=== PATIENT | female | born 1955 | race Caucasian/White ===

== ENCOUNTER → 2017-06-21 | Day surgery (SDC) | payer OTHER ==
[2017-06-20 07:52] VITALS: Ht 162.6 cm; Wt 109.1 kg
[~2017-06-21] VITALS: Ht 162.6 cm; Wt 109.1 kg
[~2017-06-21] MED LIST: CALC600T9 PO; CARV25TA2 PO; CHOL100010 PO; CYAN100T6 PO; FRS/40 PO; GLUC500C4 PO; HYDR-4380 PO; HYDR-4715 PO; IRON PO; LIDOCAINE HCL 2% 2 ML VIAL (20MG/ML) ONE; LISI40TA PO; MIDAZOLAM HCL 1 MG/ML 2ML VIAL ONE; MISCCAP80 PO; ONDANSETRON INJ 2 MG/ML 2 ML VIAL ONE; POTA20TA16 PO; PRLSR20 PO; PROPOFOL IV EMULSION 10 MG/ML 20 ML VIAL IV ONE; SIMV40TA2 PO; SODIUM CHLORIDE 0.9% 500ML 500 ML IV ONE
[2017-06-21 11:10] VITALS: TEMP 36.6
--- NOTE | 2017-06-21 11:42 | Endo History and Physical ---
History & Physical Date of Service: Jun 21, 2017. Chief Complaint: epigastric pain Referring Physician: Britany Desai PA-C History of Present Illness 62 yo CF who presents for EGD secondary to epigastric pain. Past Medical History Anxiety, High Cholesterol, Hypertension Past Surgical History Hx Cardiac Surgery: Yes (HEART CATH/NO STENTS) Hx Internal Defibrillator: No Hx Pacemaker: No Hx Abdominal Surgery: Yes (RT NEPHRECTOMY, C SECTION) Hx of Implantable Prosthesis: No Hx Post-Op Nausea and Vomiting: Yes (NAUSEAS FOR DAYS AFTER ANESTHESIA) Hx Cancer Surgery: No Hx Thoracic Surgery: No Hx Orthopedic: Yes (LUMBAR LAMINECTOMY X 2) Hx Urinary Tract Surgery: No Family History None Social History Smoking Status: Never Smoker Hx Substance Use: No Hx Alcohol Use: No Allergies Coded Allergies: Clonidine (Verified Allergy, Unknown, severe HTN, 06/20/17) Meperidine (Verified Allergy, Unknown, CAN'T BREATHE,THROAT SWELLS, ) Sulfa Drugs (Verified Allergy, Unknown, NERVOUS, 06/20/17) Morphine (Verified Adverse Reaction, Intermediate, "made mouth numb"-CAN' T BREATHE,THROAT SWELLS, 06/20/17) Current Medications Reported Home Medications Medications Dose Route/Sig Max Daily Dose Days Date Category Zocor (Simvastatin) 40 Mg Tab 40 Mg PO QPM 06/20/17 Reported Hydrocodone/Acetaminophen (Hydrocodone-Acetaminophen) 1 Tab Tab 0.5 Tab PO Q6H PRN 06/20/17 Reported Vitamin D (Cholecalciferol) 1,000 Unit Tab 1 Tab PO QAM 06/20/17 Reported Vitamin B12 100 Mcg (Cyanocobalamin) 100 Mcg Tab 100 Mcg PO QAM 06/20/17 Reported Prilosec (Omeprazole) 20 Mg Capcr 20 Mg PO BID 06/20/17 Reported Zestril (Lisinopril) 40 Mg Tab 40 Mg PO QAM 06/20/17 Reported Klor-Con (Potassium Chloride) 20 Meq Tabcr 20 Meq PO QAM 06/20/17 Reported [Iron] 90 Mg PO QAM 06/20/17 Reported Apresoline (Hydralazine Hcl) 10 Mg Tab 10 Mg PO BID 06/20/17 Reported Glucosamine (Glucosamine Sulfate) 500 Mg Cap 1 Cap PO BID 06/20/17 Reported Lasix (Furosemide) 40 Mg Tab 40 Mg PO QAM 06/20/17 Reported Coreg (Carvedilol) 25 Mg Tab 1 Tab PO BID 90 06/20/17 Reported Calcium + D (Calcium Carbonate-Vitamin D) 1 Tab Tab 1 Tab PO HS 06/20/17 Reported Probiotic (Probiotic Product) 1 Cap Cap 1 Cap PO QAM 06/20/17 Reported Vital Signs Weight (Kilograms): 109.09 Height (Feet): 5 Height (Inches): 4 Date Time Temp Pulse Resp B/P (MAP) Pulse Ox O2 Delivery O2 Flow Rate FiO2 06/21/17 11:10 36.6 77 20 162/90 (114) 96 Room Air Physical Exam General Appearance: WD/WN, no apparent distress Respiratory/Chest: Auscultation: breath sounds normal Cardiovascular: Heart Auscultation: RRR Abdomen: Bowel Sounds: normal Inspection & Palpation: soft, non-distended, no tenderness, guarding & rebound Assessment and Plan Assessment: 62 yo CF who presents for EGD secondary to epigastric pain. Plan: Proceed with colonoscopy.
--- NOTE | 2017-06-21 12:49 | Discharge Instructions ---
Endoscopy Patient Instructions Date / Procedure(s) Performed Jun 21, 2017. EGD Allergy Information Coded Allergies: Clonidine (Verified Allergy, Unknown, severe HTN, 06/20/17) Meperidine (Verified Allergy, Unknown, CAN'T BREATHE,THROAT SWELLS, ) Sulfa Drugs (Verified Allergy, Unknown, NERVOUS, 06/20/17) Morphine (Verified Adverse Reaction, Intermediate, "made mouth numb"-CAN' T BREATHE,THROAT SWELLS, 06/20/17) Discharge Date / Findings Jun 21, 2017. Gastritis s/p biopsies Gastric polyps s/p biopsies Medication Instructions OK to resume all medications today as prescribed Reported Home Medications Medications Dose Route/Sig Max Daily Dose Days Date Category Zocor (Simvastatin) 40 Mg Tab 40 Mg PO QPM 06/20/17 Reported Hydrocodone/Acetaminophen (Hydrocodone-Acetaminophen) 1 Tab Tab 0.5 Tab PO Q6H PRN 06/20/17 Reported Vitamin D (Cholecalciferol) 1,000 Unit Tab 1 Tab PO QAM 06/20/17 Reported Vitamin B12 100 Mcg (Cyanocobalamin) 100 Mcg Tab 100 Mcg PO QAM 06/20/17 Reported Prilosec (Omeprazole) 20 Mg Capcr 20 Mg PO BID 06/20/17 Reported Zestril (Lisinopril) 40 Mg Tab 40 Mg PO QAM 06/20/17 Reported Klor-Con (Potassium Chloride) 20 Meq Tabcr 20 Meq PO QAM 06/20/17 Reported [Iron] 90 Mg PO QAM 06/20/17 Reported Apresoline (Hydralazine Hcl) 10 Mg Tab 10 Mg PO BID 06/20/17 Reported Glucosamine (Glucosamine Sulfate) 500 Mg Cap 1 Cap PO BID 06/20/17 Reported Lasix (Furosemide) 40 Mg Tab 40 Mg PO QAM 06/20/17 Reported Coreg (Carvedilol) 25 Mg Tab 1 Tab PO BID 90 06/20/17 Reported Calcium + D (Calcium Carbonate-Vitamin D) 1 Tab Tab 1 Tab PO HS 06/20/17 Reported Probiotic (Probiotic Product) 1 Cap Cap 1 Cap PO QAM 06/20/17 Reported Provider Instructions Activity Restrictions - No exercising or heavy lifting for 24 hours. - Do not drink alcohol the day of the procedure. - Do not drive a car or operate machinery until the day after the procedure. - Do not make any important decisions or sign important papers in 24 hours after the procedure. Following Day: - Return to full activity which may include returning to work/school. Diet Start your diet with liquids and light foods (jello, soup, juice, toast). Then eat your usual diet if not nauseated. Treatment For Common After Affects For mild abdominal pain, bloating, or excessive gas: - Rest - Eat lightly - Lie on right side Follow-Up Information Follow-up with Britany Desai PA-C as scheduled Anesthesia Information What You Should Know You have had a procedure that required some medicine to reduce anxiety and discomfort. This treatment is called moderate sedation. After receiving the treatment, you may be sleepy, but you will be able to breathe on your own. The effects of the treatment may last for several hours. Follow these instructions along with Activity/Diet recommendations noted above: * Do NOT do anything where dizziness or clumsiness would be dangerous. * Rest quietly at home today, then you can be up and about tomorrow. * Have a responsible person stay with you the rest of today. * You may have had an I.V. today. If so, you may take the dressing off later today. Recommendations Call your doctor if: * Trouble breathing * Continuous vomiting for more than 24 hours * Temperature above 101 degrees * Severe abdominal pain or bloating * Pain not relieved by pain medicine ordered * There is increased drainage or redness from any incision * A large amount of rectal bleeding greater than 2-3 tablespoons. (If you had a polyp/s removed or have hemorrhoids, a small amount of blood - from the rectum is to be expected.) * You have any unanswered questions or concerns. IN THE EVENT OF A SERIOUS EMERGENCY, GO TO THE NEAREST EMERGENCY ROOM Your discharge instructions were prepared by provider Gopi Robb. Patient Instructions Signature Page Cheyanne Hussein Patient (or Guardian) Signature/Date: I have read and understand the instructions given to me by my caregivers. Caregiver/RN/Doctor Signature/Date: The above-named patient and/or guardian has received patient instructions on this date. + Original Patient Signature Page (only) stays with chart. Please make copy for patient.
--- NOTE | 2017-06-21 12:59 | GI REPORT ---
Procedure Date: 06/21/2017 12:19 PM Procedure: Upper GI endoscopy Indications: Epigastric abdominal pain Medicines: Monitored Anesthesia Care Complications: No immediate complications. Estimated Blood Loss: Estimated blood loss: none. Procedure: Pre-Anesthesia Assessment: - Prior to the procedure, a History and Physical was performed, and patient medications and allergies were reviewed. The patient's tolerance of previous anesthesia was also reviewed. The risks and benefits of the procedure and the sedation options and risks were discussed with the patient. All questions were answered, and informed consent was obtained. Prior Anticoagulants: The patient has taken no previous anticoagulant or antiplatelet agents. ASA Grade Assessment: III - A patient with severe systemic disease. After reviewing the risks and benefits, the patient was deemed in satisfactory condition to undergo the procedure. After obtaining informed consent, the endoscope was passed under direct vision. Throughout the procedure, the patient's blood pressure, pulse, and oxygen saturations were monitored continuously. The scope was introduced through the mouth, and advanced to the second part of duodenum. The upper GI endoscopy was accomplished without difficulty. The patient tolerated the procedure well. Findings: The esophagus was normal. Multiple 3 to 8 mm sessile polyps with no stigmata of recent bleeding were found in the gastric fundus. Biopsies were taken with a cold forceps for histology. Localized mild inflammation characterized by erythema was found in the gastric antrum. Biopsies were taken with a cold forceps for histology. The examined duodenum was normal. Impression: - Normal esophagus. - Multiple gastric polyps. Biopsied. - Gastritis. Biopsied. - Normal examined duodenum. Recommendation: - Resume previous diet. - Continue present medications. - Await pathology results. - Return to primary care physician as previously scheduled. Gopi Robb, DO 06/21/2017 12:59:30 PM This report has been signed electronically. Note Initiated On: 06/21/2017 12:19 PM I attest to the content of the Intraoperative Record and orders documented therein, exceptions below
[2017-06-21 13:17] VITALS: BP 165/88; PULSE 79; O2SAT 96
--- NOTE | 2017-06-21 13:23 | Anesthesiology Progress Note ---
Anesthesia Post Op Note Date & Time Jun 21, 2017 at 13:23 Vital Signs Pain Intensity: 1 Vital Signs Past 12 Hours Date Time Temp Pulse Resp B/P (MAP) Pulse Ox O2 Delivery O2 Flow Rate FiO2 06/21/17 13:17 79 20 165/88 (113) 96 Room Air 06/21/17 13:03 81 20 147/86 (106) 94 Room Air 06/21/17 12:48 73 20 135/77 (96) 96 Room Air 06/21/17 11:10 36.6 77 20 162/90 (114) 96 Room Air Notes Mental Status: alert / awake / arousable, participated in evaluation Pt Amnestic to Procedure: Yes Nausea / Vomiting: adequately controlled Pain: adequately controlled Airway Patency, RR, SpO2: stable & adequate BP & HR: stable & adequate Hydration State: stable & adequate Anesthetic Complications: no major complications apparent
== END | disposition home or self-care (01) ==
LOC: C.GI 10:44
PROVIDERS: ATTEND Internal Medicine
DX: R10.13 Epigastric pain (principal); K29.50 Unspecified chronic gastritis without bleeding; K31.7 Polyp of stomach and duodenum; K21.9 Gastro-esophageal reflux disease without esophagitis; Z88.5 Allergy status to narcotic agent; Z88.2 Allergy status to sulfonamides; I10 Essential (primary) hypertension; G47.33 Obstructive sleep apnea (adult) (pediatric); E78.00 Pure hypercholesterolemia, unspecified; Z90.5 Acquired absence of kidney; Z88.8 Allergy status to other drugs, medicaments and biological substances

== ENCOUNTER 2020-08-17 12:07 | Observation (INO) ==
[2020-08-17] MEDS ORDERED: NITROGLYCERIN SL 0.4 MG/TAB TAB SL STA (13:09)
[2020-08-17 13:10] LABS: Alanine Aminotransferase 27 U/L (12-78); Albumin Level 3.9 gm/dl (3.4-5.0); Aspartate Aminotransferase 16 U/L (15-37); BUN Creatinine Ratio 22.2 (10-20); Blood Urea Nitrogen 30 mg/dl (7-18); Calcium 9.4 mg/dl (8.5-10.1); Carbon Dioxide 26 mmol/L (21-32); Chloride 110 mmol/L (98-107); Creatinine Clr Calc Pharmacy 50.3 ml/min; Est GFR (African American) 47.4; Est GFR (Non-African American) 40.9; Glucose 105 mg/dl (70-99); Lipase 242 U/L (73-393); Potassium 3.5 mmol/L (3.5-5.1); Sodium 142 mmol/L (136-145)
[2020-08-17 13:14] LABS: Albumin Globulin Ratio 1.1 (0.9-2); Alkaline Phosphatase 85 U/L (45-117); Bilirubin,Total 0.5 mg/dl (0.2-1); Globulin 3.7 gm/dl (2.5-4.0); Total Protein 7.6 gm/dl (6.4-8.2); Troponin I < 0.015 ng/ml (0-0.045)
[2020-08-17 13:22] LABS: Basophils # (auto) 0.02 K/uL (0-0.2); Basophils % (auto) 0.3 %; Eosinophils # (auto) 0.09 K/uL (0-0.5); Eosinophils % (auto) 1.3 %; Hematocrit (blood only) 37.7 % (37-47); Hemoglobin 12.2 g/dL (12.0-16.0); Immature Granulocytes # (auto) 0.02 K/uL (0.00-0.02); Immature Granulocytes % (auto) 0.3 %; Lymphocytes # (auto) 1.17 K/uL (1.2-3.4); Lymphocytes % (auto) 17.1 %; Mean Corpuscular Hemoglobin 29.6 pg (25-34); Mean Corpuscular Hgb Conc 32.4 g/dL (32-36); Mean Corpuscular Volume 91.5 fL (80-100); Mean Platelet Volume 10.7 fL (7.4-10.4); Monocytes # (auto) 0.72 K/uL (0.11-0.59); Monocytes % (auto) 10.5 %; Neutrophils # (auto) 4.84 K/uL (1.4-6.5); Neutrophils % (auto) 70.5 %; Platelet Count 192 K/uL (130-400); RDW Coefficient of Variation 13.2 % (11.5-14.5); RDW Standard Deviation 44.4 fL (36.4-46.3); Red Blood Count 4.12 M/uL (4.2-5.4); White Blood Count 6.86 K/uL (4.8-10.8)
--- NOTE | 2020-08-17 13:33 | XRay Report ---
SINGLE VIEW CHEST CLINICAL HISTORY: Atypical chest pain. FINDINGS: An AP, portable, upright chest radiograph is compared to study dated 04/21/2018. The heart is enlarged noting atherosclerotic calcification of the thoracic aorta. The pulmonary vasculature is noncongested. Chronic interstitial thickening is similar to previous. There is mild bibasilar scarrin g/atelectasis. No airspace consolidation or large pleural effusion is identified. No pneumothorax is seen. The skeletal structures are osteopenic. The bony thorax is grossly intact. IMPRESSION: Cardiomegaly with no acute cardiopulmonary abnormality. ACT 112: Negative or not required by law. Electronically signed by: Theodore Carlton M.D. 08/17/2020 1:32 PM
[2020-08-17] MEDS: NITROGLYCERIN SL 0.4 MG/TAB TAB SL PRN ×2 (13:47→13:53)
--- NOTE | 2020-08-17 13:48 | Emergency Department Note ---
Impression & Plan Hypertensive urgency, Chest pain, Complete left bundle branch block (LBBB), Abnormal ECG ED Provider Note NAME: JEMAL MCCABE AGE: 65 SEX: F : 1955 ARRIVES VIA: Walk-In INFORMANT: Patient ED PROVIDER(S): David Petty DO CHIEF COMPLAINT: Chest pain and shortness of breath HPI: Patient is a 65-year-old female who presents to the ER for chest pain and shortness of breath. Symptoms have been getting worse over the past 1 to 2 weeks. Initially started following receiving Covid dose two days later. She does have a little cough. Denies any belly pain, nausea, vomiting, or diarrhea. She is having exertional chest pain and shortness of breath which has present for the past 1.5 weeks. Symptoms have gotten worse today and now present since getting up. Denies any dysuria, urgency, or frequency. No other exacerbating or remitting factors. She does follow with cardiology secondary to high blood pressure. Has a history of hyperlipidemia. She has taken all her medications for her blood pressure today. ROS: See above HPI for pertinent positives & negatives. A total of 10 systems reviewed and were otherwise negative. PAST MEDICAL HISTORY:See Below PAST SURGICAL HISTORY:See Below FAMILY HISTORY:See Below SOCIAL HISTORY:See Below HOME MEDICATIONS:See Below ALLERGIES:See Below VITALS:See Below PHYSICAL EXAMINATION: GENERAL: Sitting up in bed, alert, well appearing, well nourished, no distress, non-toxic EYE EXAM: normal conjunctiva. OROPHARYNX: no exudate, no erythema, lips, buccal mucosa, and tongue normal and mucous membranes are moist NECK: supple, no nuchal rigidity, no adenopathy, non-tender LUNGS: Clear to auscultation. Normal chest wall mechanics HEART: no murmurs, S1 normal and S2 normal ABDOMEN: abdomen soft, non-tender, normo-active bowel sounds, no masses, no rebound or guarding. BACK: Back is symmetrical on inspection and there is no deformity, no midline tenderness, no CVA tenderness. SKIN: no rashes and no bruising UPPER EXTREMITIES: upper extremities are grossly normal. LOWER EXTREMITIES: Pitting edema bilateral lower extremities NEURO EXAM: Normal sensorium, cranial nerves II-XII grossly intact, normal spe ech, no gross weakness of arms, no gross weakness of legs. MEDICAL DECISION MAKING: Patient is a 65-year-old female who presents the ER for chest pain present externally exertional over the past week. Now is present at rest associate with shortness of breath. Scribes as a tightness/heaviness over the middle of her chest. IV was established blood work was obtained. EKG was obtained. EKG showed a new left bundle branch block. Labs show no significant leukocytosis or anemia. BMP with slightly elevated chloride at 110. LFTs bilirubin are unremarkable. Troponin was negative with symptoms have been present for over 6 hours. Lipase was normal. Covid was negative. Patient was given sublingual nitro which resolved the chest pain. She is given aspirin. Blood pressure is peaked and she was placed on Nitropaste. Trended down to 170s and went back up. She is given IV hydralazine. She is given IV labetalol. Following this she was placed on a Cardene drip and will be titrated up. Discussed with Roderick and Dr. Frank from [facility] and his hospitalist team. Patient did remain chest pain free throughout this time. Patient was also discussed with Dr. Jose M Canada in regards to the chest pain, hypertension and new left bundle branch block. He recommended control of the blood pressure including IV hydralazine. Triage Nursing notes reviewed. Limited review of prior medical records performed Vital Signs: reviewed and remarkable for hypertensive Differential diagnosis: Differential diagnoses includes but is not limited to acute coronary syndrome, myocardial infarction, pericarditis, pulmonary embolus, aortic dissection, pneumonia, pneumothorax, musculoskeletal, shingles, esophageal. ER treatment provided: See below Diagnostics interpreted by me: ECG: Sinus rhythm rate 89 Left axis Left bundle branch block T wave inversion in the high lateral leads QTC 486 Left bundle branch is new from previous Cardiac Monitoring: An order was placed for continuous cardiac monitoring. The monitor shows a rate of 85 with sinus rhythm. Laboratory studies: As stated above and show below. Imaging studies: See below Consultation(s): Discussed with Dr. Jose M Canada from out any cardiology as stated above Discussed with not any hospitalist team for further evaluation Procedures: none Critical Care: I have personally spent 45 minutes of critical care time in the direct m anagement of this patient. This includes bedside care, interpretation of diagnostic studies, and testing, discussion with consultants, patient, and family members, and other required patient management activities. This 45 minutes is in excess of all separately billable procedures. Past Med/Surg History Medical History (Updated 08/17/20 @ 17:37 by David Petty DO) Back pain Chronic diastolic CHF (congestive heart failure) CKD (chronic kidney disease) Dyslipidemia HTN (hypertension) HTN (hypertension) Single kidney Sleep apnea Varicose vein of leg Surgical History H/O partial nephrectomy S/P lumbar discectomy Family History Other Blood clot in vein Social History Smoking Status: Never smoker Feels Safe at Home: Yes Allergies Allergies Allergy/AdvReac Type Severity Reaction Status Date / Time meperidine Allergy Severe CAN'T Verified 08/17/20 14:54 BREATHE,THROAT SWELLS morphine Allergy Severe Anaphylaxis Verified 08/17/20 14:54 Sulfa (Sulfonamide Allergy Intermediate NERVOUS Verified 08/17/20 14:54 Antibiotics) amlodipine Allergy Joint Pain Verified 08/17/20 16:54 clonidine AdvReac Severe severe HTN Verified 08/17/20 14:54 NSAIDS (Non-Steroidal AdvReac Severe ONLY HAS Verified 08/17/20 14:54 Anti-Inflamma ONE KIDNEY vaccines Allergy Anaphylaxis Uncoded 08/17/20 14:55 Home Meds Home Medications Medication Instructions Recorded Confirmed bupropion HCl 150 mg PO QAM 02/24/18 08/17/20 carvedilol 25 mg PO BID 02/24/18 08/17/20 glucosamine sulfate [Glucosamine] 500 mg PO BID 02/24/18 08/17/20 iron 18 mg PO DAILY 02/24/18 08/17/20 potassium chloride 20 meq PO DAILY 02/24/18 08/17/20 simvastatin 40 mg PO PM 02/24/18 08/17/20 calcium carbonate-vitamin D3 1 tab PO HS 08/17/20 08/17/20 [Calcium + D] lactobacillus combination no.4 3,000 mmu cells PO DAILY 08/17/20 08/17/20 [Probiotic] multivitamin [Multiple Vitamin] 1 tab PO DAILY 08/17/20 08/17/20 pantoprazole 20 mg PO BID 08/17/20 08/17/20 Previous Rx's Medication Instructions Recorded hydralazine 25 mg tablet 25 mg PO TID #90 tab 04/12/19 furosemide 40 mg tablet 40 mg PO DAILY #90 tab 07/10/20 lisinopril 40 mg tablet 40 mg PO DAILY #90 tab 07/10/20 Results & Data (ED) Vital Signs Vital Signs - 24 hr 08/17/20 12:18 08/17/20 12:29 08/17/20 12:59 Temperature 36.4 C L Temperature Source Skin Pulse Rate 90 85 Pulse Rate from SpO2 Sensor Pulse Rhythm Regular Pulse Strength Normal Respiratory Rate 20 15 Respiratory Effort / Characteristics Non-Labored Spontaneous Respiratory Depth Normal Respiratory Pattern Regular Blood Pressure 171/76 H 215/98 H Blood Pressure Mean 107 137 Pulse Oximetry 95 95 96 Oxygen Delivery Method Room Air Sepsis Recent Fever Within 48 Hours No Sepsis New/Unexplained Change in Mental Status N/A Sepsis Action Taken by Nursing No Action Required 08/17/20 13:00 08/17/20 13:44 08/17/20 13:53 Temperature Temperature Source Pulse Rate 85 86 87 Pulse Rate from SpO2 Sensor 85 86 88 Pulse Rhythm Pulse Strength Respiratory Rate 16 15 17 Respiratory Effort / Characteristics Respiratory Depth Respiratory Pattern Blood Pressure 208/113 H 191/108 H 222/137 H Blood Pressure Mean 144 135 165 Pulse Oximetry 96 95 94 Oxygen Delivery Method Sepsis Recent Fever Within 48 Hours Sepsis New/Unexplained Change in Mental Status Sepsis Action Taken by Nursing 08/17/20 14:00 08/17/20 14:31 08/17/20 14:32 Temperature Temperature Source Pulse Rate 85 82 73 Pulse Rate from SpO2 Sensor 83 74 Pulse Rhythm Pulse Strength Respiratory Rate 16 16 15 Respiratory Effort / Characteristics Respiratory Depth Respiratory Pattern Blood Pressure 172/109 H 208/101 H Blood Pressure Mean 130 136 Pulse Oximetry 94 96 95 Oxygen Delivery Method Sepsis Recent Fever Within 48 Hours Sepsis New/Unexplained Change in Mental Status Sepsis Action Taken by Nursing 08/17/20 15:00 08/17/20 15:30 08/17/20 15:31 Temperature Temperature Source Pulse Rate 78 79 78 Pulse Rate from SpO2 Sensor 78 79 78 Pulse Rhythm Pulse Strength Respiratory Rate 18 12 13 Respiratory Effort / Characteristics Respiratory Depth Respiratory Pattern Blood Pressure 201/105 H 173/99 H Blood Pressure Mean 137 123 Pulse Oximetry 97 98 98 Oxygen Delivery Method Sepsis Recent Fever Within 48 Hours Sepsis New/Unexplained Change in Mental Status Sepsis Action Taken by Nursing 08/17/20 16:06 08/17/20 16:07 08/17/20 16:30 Temperature Temperature Source Pulse Rate 84 81 90 Pulse Rate from SpO2 Sensor 82 80 90 Pulse Rhythm Pulse Strength Respiratory Rate 20 15 12 Respiratory Effort / Characteristics Respiratory Depth Respiratory Pattern Blood Pressure 208/106 H Blood Pressure Mean 140 Pulse Oximetry 96 97 98 Oxygen Delivery Method Sepsis Recent Fever Within 48 Hours Sepsis New/Unexplained Change in Mental Status Sepsis Action Taken by Nursing 08/17/20 16:31 Temperature Temperature Source Pulse Rate 89 Pulse Rate from SpO2 Sensor 89 Pulse Rhythm Pulse Strength Respiratory Rate 14 Respiratory Effort / Characteristics Respiratory Depth Respiratory Pattern Blood Pressure 224/95 H Blood Pressure Mean 138 Pulse Oximetry 97 Oxygen Delivery Method Sepsis Recent Fever Within 48 Hours Sepsis New/Unexplained Change in Mental Status Sepsis Action Taken by Nursing Laboratory Data Result diagrams: 08/17/20 12:36 08/17/20 12:36 Lab Results 08/17/20 08/17/20 08/17/20 Range/Units 12:36 12:36 13:59 WBC 6.86 (4.8-10.8) K/uL RBC 4.12 L (4.2-5.4) M/uL Hgb 12.2 (12.0-16.0) g/dL Hct 37.7 (37-47) % MCV 91.5 (80-100) fL MCH 29.6 (25-34) pg MCHC 32.4 (32-36) g/dL RDW Std Deviation 44.4 (36.4-46.3) fL RDW Coeff of Gaby 13.2 (11.5-14.5) % Plt Count 192 (130-400) K/uL MPV 10.7 H (7.4-10.4) fL Immature Gran % (Auto) 0.3 % Neut % (Auto) 70.5 % Lymph % (Auto) 17.1 % Weak[place] % (Auto) 10.5 % Eos % (Auto) 1.3 % Baso % (Auto) 0.3 % Neut # (Auto) 4.84 (1.4-6.5) K/uL Lymph # (Auto) 1.17 L (1.2-3.4) K/uL Weakley # (Auto) 0.72 H (0.11-0.59) K/uL Eos # (Auto) 0.09 (0-0.5) K/uL Baso # (Auto) 0.02 (0-0.2) K/uL Immature Gran # (Auto) 0.02 (0.00-0.02) K/uL Sodium 142 (136-145) mmol/L Potassium 3.5 (3.5-5.1) mmol/L Chloride 110 H (98-107) mmol/L Carbon Dioxide 26 (21-32) mmol/L Anion Gap 7.0 (3-11) BUN 30 H (7-18) mg/dl Creatinine 1.34 H (0.6-1.2) mg/dl Est Cr Clr Drug Dosing 50.3 ml/min Est GFR ( Amer) 47.4 Est GFR (Non-Af Amer) 40.9 BUN/Creatinine Ratio 22.2 H (10-20) Glucose 105 H (70-99) mg/dl Calcium 9.4 (8.5-10.1) mg/dl Total Bilirubin 0.5 (0.2-1) mg/dl AST 16 (15-37) U/L ALT 27 (12-78) U/L Alkaline Phosphatase 85 (45-117) U/L Troponin I < 0.015 (0-0.045) ng/ml Total Protein 7.6 (6.4-8.2) gm/dl Albumin 3.9 (3.4-5.0) gm/dl Globulin 3.7 (2.5-4.0) gm/dl Albumin/Globulin Ratio 1.1 (0.9-2) Lipase 242 (73-393) U/L COVID-19 Eval Order CovFluRsv at [facility] SARS-CoV-2 (PCR) (Negative) Influenza Type A (PCR) (Neg) Influenza Type B (PCR) (Neg) RSV (RT-PCR) (Neg) 08/17/20 Range/Units 13:59 WBC (4.8-10.8) K/uL RBC (4.2-5.4) M/uL Hgb (12.0-16.0) g/dL Hct (37-47) % MCV (80-100) fL MCH (25-34) pg MCHC (32-36) g/dL RDW Std Deviation (36.4-46.3) fL RDW Coeff of Gaby (11.5-14.5) % Plt Count (130-400) K/uL MPV (7.4-10.4) fL Immature Gran % (Auto) % Neut % (Auto) % Lymph % (Auto) % Weakley % (Auto) % Eos % (Auto) % Baso % (Auto) % Neut # (Auto) (1.4-6.5) K/uL Lymph # (Auto) (1.2-3.4) K/uL Weakley # (Auto) (0.11-0.59) K/uL Eos # (Auto) (0-0.5) K/uL Baso # (Auto) (0-0.2) K/uL Immature Gran # (Auto) (0.00-0.02) K/uL Sodium (136-145) mmol/L Potassium (3.5-5.1) mmol/L Chloride (98-107) mmol/L Carbon Dioxide (21-32) mmol/L Anion Gap (3-11) BUN (7-18) mg/dl Creatinine (0.6-1.2) mg/dl Est Cr Clr Drug Dosing ml/min Est GFR ( Amer) Est GFR (Non-Af Amer) BUN/Creatinine Ratio (10-20) Glucose (70-99) mg/dl Calcium (8.5-10.1) mg/dl Total Bilirubin (0.2-1) mg/dl AST (15-37) U/L ALT (12-78) U/L Alkaline Phosphatase (45-117) U/L Troponin I (0-0.045) ng/ml Total Protein (6.4-8.2) gm/dl Albumin (3.4-5.0) gm/dl Globulin (2.5-4.0) gm/dl Albumin/Globulin Ratio (0.9-2) Lipase (73-393) U/L COVID-19 Eval Order SARS-CoV-2 (PCR) NEGATIVE (Negative) Influenza Type A (PCR) Negative (Neg) Influenza Type B (PCR) Negative (Neg) RSV (RT-PCR) Negative (Neg) Administered Medications Nicardipine HCl 25 mg/ Sodium (Chloride) 250 mls @ 50 mls/hr IV .Q5H [facility]; Protocol Stop: 09/16/20 16:44 Last Admin: 08/17/20 17:11 Dose: 5 mg/hr, 50 mls/hr Documented by: [id number] Cosigned by: [id number] Nitroglycerin (Nitroglycerin Sl 0.4 Mg/Tab Tab) 0.4 mg SL PRN PRN PRN Reason: Chest Pain Stop: 09/16/20 13:38 Last Admin: 08/17/20 13:53 Dose: 0.4 mg Documented by: [id number] Admin: 08/17/20 13:47 Dose: 0.4 mg Documented by: [id number] Discontinued Medications Hydralazine HCl (Hydralazine Hcl 20 Mg/Ml Vial) 10 mg IV NOW STA Stop: 08/17/20 15:32 Last Admin: 08/17/20 15:55 Dose: 10 mg Documented by: [id number] Labetalol HCl (Labetalol Hcl Iv 5 Mg/Ml 20ml) 10 mg IV NOW STA Stop: 08/17/20 16:44 Last Admin: 08/17/20 16:51 Dose: 10 mg Documented by: [id number] Cosigned by: [id number] Miscellaneous (Stat Iv Infusion Titration Per Protocol) 1 ea N/A NOW STA Stop: 08/17/20 16:44 Last Admin: 08/17/20 17:11 Dose: 1 ea Documented by: [id number] Nitroglycerin (Nitroglycerin Sl 0.4 Mg/Tab Tab) 0.4 mg SL NOW STA Stop: 08/17/20 13:10 Last Admin: 08/17/20 13:29 Dose: 0.4 mg Documented by: [id number] Nitroglycerin (Nitroglycerin 2% Ointment 30gm Tube) 2 inch EXT Q6H STA Stop: 08/17/20 14:29 Last Admin: 08/17/20 14:58 Dose: 2 inch Documented by: [id number] Imaging Data Radiologist's Impression: Chest X-Ray 08/17/20 12:57 SINGLE VIEW CHEST CLINICAL HISTORY: Atypical chest pain. FINDINGS: An AP, portable, upright chest radiograph is compared to study dated 04/21/2018. The heart is enlarged noting atherosclerotic calcification of the thoracic aorta. The pulmonary vasculature is noncongested. Chronic interstitial thickening is similar to previous. There is mild bibasilar scarring/atelectasis. No airspace consolidation or large pleural effusion is identified. No pneumothorax is seen. The skeletal structures are osteopenic. The bony thorax is grossly intact. IMPRESSION: Cardiomegaly with no acute cardiopulmonary abnormality. ACT 112: Negative or not required by law. Electronically signed by: Theodore Carlton M.D. 08/17/2020 1:32 PM Discharge Plan Visit Data Chief Complaint: Cardiac Assessment Stated Complaint: TIGHTNESS IN CHEST,HARD TO BREATHE,TIRED ED Provider: David Petty Discharge Problem: Hypertensive urgency, Chest pain, Complete left bundle branch block (LBBB), Abnormal ECG Forms Stand Alone Forms: [facility] Prescriptions Prescriptions: No Action furosemide 40 mg tablet 40 mg PO DAILY Qty: 90 RF: 3 lisinopril 40 mg tablet 40 mg PO DAILY Qty: 90 RF: 3 hydralazine 25 mg tablet 25 mg PO TID Qty: 90 RF: 5 carvedilol 25 mg Tablet 25 mg PO BID RF: 0 glucosamine sulfate [Glucosamine] 500 mg Tablet 500 mg PO BID RF: 0 potassium chloride 20 mEq Tablet Extended Release 20 meq PO DAILY RF: 0 bupropion HCl 150 mg Tablet Extended Release 24 Hr 150 mg PO QAM RF: 0 simvastatin 40 mg Tablet 40 mg PO PM RF: 0 iron 18 mg Tablet 18 mg PO DAILY RF: 0 calcium carbonate-vitamin D3 [Calcium + D] 600 mg(1,500mg) -200 unit Tablet 1 tab PO HS RF: 0 pantoprazole 20 mg tablet,delayed release (DR/EC) 20 mg PO BID RF: 0 multivitamin [Multiple Vitamin] Tablet 1 tab PO DAILY RF: 0 Probiotic 3 billion cell Capsule 3,000 mmu cells PO DAILY RF: 0 Discharge Problem: Chest pain Qualifiers: Chest pain type: unspecified Qualified Code(s): R07.9 - Chest pain, unspecified
[2020-08-17] MEDS ORDERED: NITROGLYCERIN 2% OINTMENT 30GM TUBE EXT STA (14:28)
[2020-08-17 14:49] LABS: Influenza A virus by PCR Negative (Neg); Influenza B virus by PCR Negative (Neg); RSV by PCR Negative (Neg); SARS CoV2 RNA(COVID-19) InHosp NEGATIVE (Negative)
[2020-08-17] MEDS ORDERED: hydrALAZINE HCL 20 MG/ML VIAL IV STA (15:31)
[2020-08-17] MEDS ORDERED: STAT IV Infusion **Titration per Protocol STA ×2 (16:43→18:22)
[2020-08-17] MEDS ORDERED: LABETALOL HCL IV 5 MG/ML 20ML IV STA (16:43)
[2020-08-17] MEDS ORDERED: niCARdipine 25 MG in SODIUM CHLORIDE 0.9% 240 ML IV SCH (16:45)
--- NOTE | 2020-08-17 17:40 | Electrocardiogram Report ---
Test Reason : Blood Pressure : / mmHG Vent. Rate : 089 BPM Atrial Rate : 089 BPM P-R Int : 188 ms QRS Dur : 138 ms QT Int : 400 ms P-R-T Axes : 073 -57 093 degrees QTc Int : 486 ms Normal sinus rhythm Left axis deviation Left bundle branch block Abnormal ECG When compared with ECG of 24-FEB-2018 06:43, Left bundle branch block is now Present Confirmed by Alex Canada ([id number]) on 08/17/2020 5:39:43 PM Referred By: REFERRED SELF Confirmed By:Satinder Canada
[2020-08-17] MEDS ORDERED: ALUMINUM/MAGNESIUM SUSP 18 ML, LIDOCAINE HCL VISCOUS 2% 6 ML, BARCODE IDENTIFIER 1 EA PO ONE (17:55)
[2020-08-17] MEDS ORDERED: FUROSEMIDE 40 MG/4 ML VIAL IV STA (17:59)
--- NOTE | 2020-08-17 18:30 | History & Physical Report ---
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 to 1.34, her last creatinine was 1.26 in October of 2019 - Not sure this is an acute rise as her BP appears to be chronically elevated - Patient does have evidence of worsening fluid in her lower extremities- will diurese with 40mg Lasix, resume oral dosing in morning - Control of BP with Cardene drip achieved and dose decreased to 2.5 mg/hour continuous - give oral medications and wean drip off ---> if able to wean off restart if >200 or MAP >115-120 - Renal artery duplex - JOSHUA on hold for tonight, pending BMP in morning---> restart if [employer] stable (2) Complete left bundle branch block (LBBB): New when compared to 2018 ECG - Troponin I negative x1, recheck now - No acute interventions at this time (3) CKD (chronic kidney disease), stage III: As above, not sure this is acute in the setting of long standing HTN - Urine pending for urine protien and blood - Continue to control BP---> goal would be <140 during this admission - JOSHUA on hold for tonight, pending BMP in morning---> restart if [employer]US[employer] stable (4) 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 (5) Chronic diastolic CHF (congestive heart failure): Patient does note some dietary indiscretion as well as not taking her extra Lasix dose - Currently appears volume overloaded from a RV perspective - CXR not overly impressive for LV involvment - Diastolic dysfunction noted on ECHO previously- will repeat in house (6) Dyspnea: Get better control of BP and volume status - Not hypoxic - Mild tachycardic in the 90's - Diurese and BP control upfront - Bilateral venous ultrasound assess for DVT - Patient is not conversationally dyspneic, and denies orthopnea - no wheeze or crackles on exam (7) Chest pain: Troponin negative x2 - Treat GERD symptoms - ECHO - Improved upon going to the floor (8) Sleep apnea: Home CPAP (9) Dyslipidemia: lipids in morning - Continue Simvastatin 40 mg QD (10) GERD (gastroesophageal reflux disease): GI Cocktail x 1 now - Continue with pantoprazole 20mg PO BID History of Present Illness Chief Complaint: chest pain Primary Care Provider: Deanna Barney, [employer] 65 YOF with past medical history significant for one kidney (since , it had to be removed), diastolic dysfunction (55-60% 2019), HTN, CKD III, GERD, obesity, HLD. She is not a very good historian or easy to interview regarding symptoms past or present. Patient came to the ER for increasing dyspnea and chest tightness for 2 weeks. She attributed these symptoms to the COVID vaccine that she received around that time. She has had trouble catching her breath when walking, she feels like the chest discomfort comes and goes and is more like a tightness. She was given a sublingual ntg in the EMD as well as nitro- paste and she "thinks it went away but still feels some burning, like i have to burp. When asked if this was the same discomfort she felt when she had her EGD, she said "I think so" and her says yes, this is how she felt. She says that she has noticed her "legs getting more swollen and was going to take another diuretic pill, but just didn't do it", She does confess to dietary indiscretion as well. During her work-up, it was noted that her BP continued to increase and be refractory to IV agents (hydralazine 10mg IV x1, and Labetalol 10mg IVx 1) and she has since been placed on a Cardene drip, with noted 260/115. The patient will get admitted to PCU for continuation of monitoring, tracking of her BP, trending ECG, and monitoring of her Kidney function. The patient will be given 40mg IV Lasix now for edema that extends up to mid-thigh, and her hydralazine/carvedilol, with goal of removal of Cardene drip. She was noted to have a new LBBB and a negative Troponin I, the [facility] physician Dr. Petty spoke with Dr. Canada from cardiology regarding her ECG and as Troponin I is negative, continue to control BP. Allergies Allergy/AdvReac Type Severity Reaction Status Date / Time meperidine Allergy Severe CAN'T Verified 08/17/20 14:54 BREATHE,THROAT SWELLS morphine Allergy Severe Anaphylaxis Verified 08/17/20 14:54 Sulfa (Sulfonamide Allergy Intermediate NERVOUS Verified 08/17/20 14:54 Antibiotics) amlodipine Allergy Joint Pain Verified 08/17/20 16:54 clonidine AdvReac Severe severe HTN Verified 08/17/20 14:54 NSAIDS (Non-Steroidal AdvReac Severe ONLY HAS Verified 08/17/20 14:54 Anti-Inflamma ONE KIDNEY vaccines Allergy Anaphylaxis Uncoded 08/17/20 14:55 Home Medications Medication Instructions Recorded Confirmed Type bupropion HCl 150 mg PO QAM 02/24/18 08/17/20 History carvedilol 25 mg PO BID 02/24/18 08/17/20 History glucosamine sulfate [Glucosamine] 500 mg PO BID 02/24/18 08/17/20 History iron 18 mg PO DAILY 02/24/18 08/17/20 History potassium chloride 20 meq PO DAILY 02/24/18 08/17/20 History simvastatin 40 mg PO PM 02/24/18 08/17/20 History hydralazine 25 mg tablet 25 mg PO TID #90 tab 04/12/19 08/17/20 Rx furosemide 40 mg tablet 40 mg PO DAILY #90 tab 07/10/20 08/17/20 Rx lisinopril 40 mg tablet 40 mg PO DAILY #90 tab 07/10/20 08/17/20 Rx Probiotic 3,000 mmu cells PO DAILY 08/17/20 08/17/20 History calcium carbonate-vitamin D3 1 tab PO HS 08/17/20 08/17/20 History multivitamin 1 tab PO DAILY 08/17/20 08/17/20 History pantoprazole 20 mg PO BID 08/17/20 08/17/20 History Past Med/Surg History Medical History (Updated 08/18/20 @ 12:21 by Oscar Canada MD) Back pain Chronic diastolic CHF (congestive heart failure) CKD (chronic kidney disease) Dyslipidemia HTN (hypertension) HTN (hypertension) Single kidney Sleep apnea Varicose vein of leg Surgical History H/O partial nephrectomy S/P lumbar discectomy Family History Other Blood clot in vein Social History Smoking Status: Never smoker Second Hand Exposure: No; Hx Alcohol Use: No Hx Substance Use: No Preferred Language: Wolof Communication Ability: Effective Media Specialist Required: No Beliefs That Will Affect Care: None Current Living Situation: Family Feels Safe at Home: Yes Assistive Devices: None Review of Systems Review of Systems: REVIEW OF SYSTEMS: Constitutional: No fever, sweats or chills Eyes: No diplopia, no worsening or blurred vision ENT: normal hearing, no trouble swallowing Respiratory: (+) dyspnea at rest or on exertion, No cough, sputum, Cardiovascular: (+) tightness, No chest pain, or palpitations Abdomen: No pain, nausea, vomiting, diarrhea or constipation Musculoskeletal: (+) swelling, normally to mid calf, No joint pain, calf pain, Neurologic: No weakness, numbness/tingling, or balance problems Psychiatric: No anxiety or depression Skin: No rash or itch Physical Exam Physical Exam: PHYSICAL EXAM: General: awake, alert, no apparent distress, non-anxious appearing Head: Normocephalic, atraumatic ENT: PERRL, EOMI, no pharyngeal exudate, mucous membranes moist Neuro: AAO x 3, speech clear and appropriate, strength intact bilaterally 5/5, sensation intact and equal all extremities and dermatomes, no pronator drift Chest: equal rise and fall of the chest, no accessory muscle use, no heaves or thrills, Clear to auscultation, on room air, Cardiac: Regular rate and rhythm, telemetry reviewed, skin warm dry, cap refill <3 seconds, peripheral pulses +2 no JVD, no murmur, +3 edema to right below knee +2 to lower third of thigh bilaterally, skin is warm and dry. GI: Burning retrosternal pain with feeling of needing to belch, NABS x 4 quadrants, soft, nontender to palpation, no rebound, guarding or tenderness : Spontaneously voiding, no pain, no CVA tenderness, Extremities: Normal inspection, no peripheral edema or erythema, calfs nontender to palpation Psych: Normal mood and affect Skin: no rash or erythema Results & Data Results & Data ([facility]) Vital Signs (Past 12 Hours) Vital Signs Temp Pulse Resp BP Pulse Ox 08/17/20 18:06 96 H 13 156/72 H 94 08/17/20 18:01 95 H 21 92 08/17/20 18:00 93 H 12 93 08/17/20 17:46 93 H 13 215/89 H 92 08/17/20 17:41 92 H 13 226/107 H 93 08/17/20 17:32 95 H 17 93 08/17/20 17:31 93 H 15 260/115 H 94 08/17/20 17:30 93 H 15 91 08/17/20 17:21 92 H 14 269/116 H 96 08/17/20 17:01 87 16 244/103 H 96 08/17/20 17:00 86 13 96 08/17/20 16:32 88 13 96 08/17/20 16:31 89 14 224/95 H 97 08/17/20 16:30 90 12 98 08/17/20 16:07 81 15 208/106 H 97 08/17/20 16:06 84 20 96 08/17/20 15:31 78 13 98 08/17/20 15:30 79 12 173/99 H 98 08/17/20 15:00 78 18 201/105 H 97 08/17/20 14:32 73 15 95 08/17/20 14:31 82 16 208/101 H 96 08/17/20 14:00 85 16 172/109 H 94 08/17/20 13:53 87 17 222/137 H 94 08/17/20 13:44 86 15 191/108 H 95 08/17/20 13:00 85 16 208/113 H 96 08/17/20 12:59 96 08/17/20 12:29 85 15 215/98 H 95 08/17/20 12:18 36.4 C L 90 20 171/76 H 95 Laboratory Results Abnormal lab results 08/17/20 08/17/20 Range/Units 12:36 12:36 RBC 4.12 L (4.2-5.4) M/uL MPV 10.7 H (7.4-10.4) fL Lymph # (Auto) 1.17 L (1.2-3.4) K/uL [place] # (Auto) 0.72 H (0.11-0.59) K/uL Chloride 110 H (98-107) mmol/L BUN 30 H (7-18) mg/dl Creatinine 1.34 H (0.6-1.2) mg/dl BUN/Creatinine Ratio 22.2 H (10-20) Glucose 105 H (70-99) mg/dl Diagnostic Findings SINGLE VIEW CHEST CLINICAL HISTORY: Atypical chest pain. FINDINGS: An AP, portable, upright chest radiograph is compared to study dated 04/21/2018. The heart is enlarged noting atherosclerotic calcification of the thoracic aorta. The pulmonary vasculature is noncongested. Chronic interstitial thickening is similar to previous. There is mild bibasilar scarring/atelectasis. No airspace consolidation or large pleural effusion is identified. No pneumothorax is seen. The skeletal structures are osteopenic. The bony thorax is grossly intact. IMPRESSION: Cardiomegaly with no acute cardiopulmonary abnormality. Medications Administered Nitroglycerin (Nitroglycerin Sl 0.4 Mg/Tab Tab) 0.4 mg SL PRN PRN PRN Reason: Chest Pain Stop: 09/16/20 13:38 Last Admin: 08/17/20 13:53 Dose: 0.4 mg Documented by: [id number] Admin: 08/17/20 13:47 Dose: 0.4 mg Documented by: [id number] Discontinued Medications Hydralazine HCl (Hydralazine Hcl 20 Mg/Ml Vial) 10 mg IV NOW STA Stop: 08/17/20 15:32 Last Admin: 08/17/20 15:55 Dose: 10 mg Documented by: [id number] Nicardipine HCl 25 mg/ Sodium (Chloride) 250 mls @ 50 mls/hr IV .Q5H LYNN; Protocol Stop: 09/16/20 16:44 Last Titration: 08/17/20 18:05 Dose: 2.5 mg/hr, 25 mls/hr Documented by: [id number] Titration: 08/17/20 17:39 Dose: 7.5 mg/hr, 75 mls/hr Documented by: [id number] Admin: 08/17/20 17:11 Dose: 5 mg/hr, 50 mls/hr Documented by: [id number] Cosigned by: [id number] Labetalol HCl (Labetalol Hcl Iv 5 Mg/Ml 20ml) 10 mg IV NOW STA Stop: 08/17/20 16:44 Last Admin: 08/17/20 16:51 Dose: 10 mg Documented by: [id number] Cosigned by: [id number] Miscellaneous (Stat Iv Infusion Titration Per Protocol) 1 ea N/A NOW STA Stop: 08/17/20 16:44 Last Admin: 08/17/20 17:11 Dose: 1 ea Documented by: [id number] Nitroglycerin (Nitroglycerin Sl 0.4 Mg/Tab Tab) 0.4 mg SL NOW STA Stop: 08/17/20 13:10 Last Admin: 08/17/20 13:29 Dose: 0.4 mg Documented by: [id number] Nitroglycerin (Nitroglycerin 2% Ointment 30gm Tube) 2 inch EXT Q6H STA Stop: 08/17/20 14:29 Last Admin: 08/17/20 14:58 Dose: 2 inch Documented by: [id number] Home Medications bupropion HCl 150 mg PO QAM 02/24/18 [History Confirmed 08/17/20] carvedilol 25 mg PO BID 02/24/18 [History Confirmed 08/17/20] glucosamine sulfate [Glucosamine] 500 mg PO BID 02/24/18 [History Confirmed 08/17/20] iron 18 mg PO DAILY 02/24/18 [History Confirmed 08/17/20] potassium chloride 20 meq PO DAILY 02/24/18 [History Confirmed 08/17/20] simvastatin 40 mg PO PM 02/24/18 [History Confirmed 08/17/20] hydralazine 25 mg tablet 25 mg PO TID #90 tab 04/12/19 [Rx Confirmed 08/17/20] furosemide 40 mg tablet 40 mg PO DAILY #90 tab 07/10/20 [Rx Confirmed 08/17/20] lisinopril 40 mg tablet 40 mg PO DAILY #90 tab 07/10/20 [Rx Confirmed 08/17/20] calcium carbonate-vitamin D3 [Calcium + D] 1 tab PO HS 08/17/20 [History Confirmed 08/17/20] lactobacillus combination no.4 [Probiotic] 3,000 mmu cells PO DAILY 08/17/20 [History Confirmed 08/17/20] multivitamin [Multiple Vitamin] 1 tab PO DAILY 08/17/20 [History Confirmed 08/17/20] pantoprazole 20 mg PO BID 08/17/20 [History Confirmed 08/17/20] Active Medications Carvedilol (Carvedilol 25 Mg Tab) 25 mg PO BID LYNN Stop: 09/16/20 20:59 Hydralazine HCl (Hydralazine Hcl 25 Mg Tab) 25 mg PO TID LYNN Stop: 09/16/20 20:59 Nicardipine HCl 25 mg/ Sodium (Chloride) 250 mls @ 50 mls/hr IV .Q5H [facility]; Protocol Stop: 09/16/20 18:29 Nitroglycerin (Nitroglycerin Sl 0.4 Mg/Tab Tab) 0.4 mg SL PRN PRN PRN Reason: Chest Pain Stop: 09/16/20 13:38 Last Admin: 08/17/20 13:53 Dose: 0.4 mg Documented by: ECG Additional Comments: Normal sinus rhythm Left axis deviation Left bundle branch block Abnormal ECG When compared with ECG of 24-FEB-2018 06:43, Left bundle branch block is now Present Code Status & VTE Plan Code Status CODE: FULL VTE: Heparin 5000 sub q tid Critical Care Time Critical Care Time: Yes Total Critical Care Time: 15 ordering titration of blood pressure drip, monitoring frequent response to blood pressure - ordering follow up studies Supervising Physician Co-Signing Physician Notes During my face to face encounter, I obtained a history and physical examination. I reviewed above note and agree with it. I discussed plan of care with patient and HUGH Mcfadden. I answered all of the patient's questions. Patient will be admitted for HTN urgency, will wean off cardene drip and resume home meds PG Care Time/CCT Total # of Minutes Spent Total Time Spent with Patient: Total time spent is greater than 50% in coordination of care (as documented) at patient's floor/unit and/or counseling patient: Critical Care Time: Yes Total Critical Care Time: 15 Coding Level of Care Code 58420 Initial Inpt Care Lvl 3 Diagnoses Hypertensive urgency I16.0 Complete left bundle branch block (LBBB) I44.7 CKD (chronic kidney disease), stage III N18.32 Chronic kidney disease stage 3 subtype: stage 3b (GFR 30-44) Single kidney Z90.5 Chronic diastolic CHF (congestive heart failure) I50.32 Dyspnea R06.00 Dyspnea type: unspecified Chest pain R07.9 Chest pain type: unspecified Sleep apnea G47.30 Sleep apnea type: unspecified type Dyslipidemia E78.5 GERD (gastroesophageal reflux disease) K21.9 Additional Codes Critical Care Time - Critical Care Time: Yes ([id number]) (1) Sleep apnea Sleep apnea type: unspecified type Qualified Code(s): G47.30 - Sleep apnea, unspecified (2) CKD (chronic kidney disease), stage III Chronic kidney disease stage 3 subtype: stage 3b (GFR 30-44) Qualified Code(s): N18.32 - Chronic kidney disease, stage 3b (3) Dyspnea Dyspnea type: unspecified Qualified Code(s): R06.00 - Dyspnea, unspecified (4) Chest pain Chest pain type: unspecified Qualified Code(s): R07.9 - Chest pain, un specified
[2020-08-17 18:41] LABS: Thyroid Stimulating Hormone 2.08 uIu/ml (0.300-4.500)
[2020-08-17] MEDS: carvediloL 25 MG TAB PO SCH (18:46)
[2020-08-17] MEDS: FUROSEMIDE 40 MG/4 ML VIAL IV ONE ×2 (18:46→19:05)
[2020-08-17] MEDS: GI COCKTAIL ED USE PO ONE ×3 (18:46→19:09)
[2020-08-17] MEDS: niCARdipine 25 MG in SODIUM CHLORIDE 0.9% 240 ML IV SCH ×2 (19:50→23:36)
[2020-08-17] MEDS ORDERED: MAGNESIUM HYDROXIDE SUSP 30 ML UDC PO PRN (20:34)
[2020-08-17] MEDS ORDERED: NITROGLYCERIN SL 0.4 MG/TAB TAB SL PRN (20:34)
[2020-08-17] MEDS ORDERED: ACETAMINOPHEN 325 MG TAB PO PRN (20:34)
[2020-08-17] MEDS ORDERED: NON-FORMULARY MEDICATION (Glucosamine Sulfate [Glucosamine] 500 mg Tablet) PO SCH (21:00)
[2020-08-17] MEDS ORDERED: SIMVASTATIN 40 MG TAB PO SCH (21:00)
[2020-08-17] MEDS ORDERED: CALCIUM 600MG + VIT D 400 IU TAB PO SCH (21:00)
[2020-08-17] MEDS: HEPARIN SOD 5,000 UNIT/0.5 ML VIAL SQ SCH (21:26)
[2020-08-17] MEDS: PANTOprazole 40 MG TAB PO SCH (21:26)
[2020-08-17] MEDS: hydrALAZINE HCL 25 MG TAB PO SCH (23:25)
[2020-08-17] MEDS ORDERED: ONDANSETRON INJ 2 MG/ML 2 ML VIAL IV PRN (23:36)
[2020-08-18] MEDS: niCARdipine 25 MG in SODIUM CHLORIDE 0.9% 240 ML IV SCH ×3 (04:25→15:59)
[2020-08-18] MEDS: HEPARIN SOD 5,000 UNIT/0.5 ML VIAL SQ SCH ×2 (05:59→13:49)
--- NOTE | 2020-08-18 07:43 | Ultrasound Report ---
US venous doppler LE BI CLINICAL HISTORY: Leg swelling. COMPARISON STUDY: July 2019 FINDINGS: Real-time and color flow Doppler imaging were performed. Flow was seen within the femoral, popliteal and calf veins with no intraluminal thrombus demonstrated. The saphenous vein is patent. Th ere is bilateral calf edema. IMPRESSION: No evidence of lower extremity DVT. ACT 112: Negative or not required by law. Electronically signed by: Ke Rachel M.D. 08/18/2020 7:42 AM
[2020-08-18] MEDS: hydrALAZINE HCL 25 MG TAB PO SCH ×2 (08:12→13:49)
[2020-08-18] MEDS: PANTOprazole 40 MG TAB PO SCH (08:12)
--- NOTE | 2020-08-18 08:46 | Ultrasound Report ---
DOPPLER ULTRASOUND OF THE RENAL ARTERIES CLINICAL HISTORY: Hypertension. History of right nephrectomy. COMPARISON STUDY: No priors. TECHNIQUE: Doppler sonography of the renal arteries was performed to assess renal artery stenosis. Im ages are reviewed in the transverse and longitudinal planes. FINDINGS: The right kidney is surgically absent. The left kidney is normal in size and echotexture, measuring 1 0.6 cm in length. There is no hydronephrosis. On the left, intrarenal arterial resistive indices range from 0.66 to 0.67. Intrarenal arterial wave forms are normal with brisk upstrokes. The left renal arterial waveform is normal, and velocities wit hin the left renal artery measure up to 187 cm/sec. The left renal vein is patent. The abdominal aorta is patent. Velocities within the abdominal aorta measure up to 176 cm/s. IMPRESSION: 1. The right kidney is surgically absent. 2. There is no sonographic evidence of left sided renal artery stenosis. ACT 112: Negative or not required by law. Electronically signed by: Theodore Carlton M.D. 08/18/2020 8:44 AM
[2020-08-18] MEDS ORDERED: buPROPion XL 150 MG TABCR PO SCH (09:00)
[2020-08-18] MEDS ORDERED: FUROSEMIDE 40 MG TAB PO SCH (09:00)
[2020-08-18] MEDS ORDERED: POTASSIUM CHLORIDE CRTAB 20 MEQ TABCR PO SCH (09:00)
[2020-08-18] MEDS: carvediloL 25 MG TAB PO SCH (09:00)
[2020-08-18] MEDS ORDERED: MULTIVITAMIN TAB PO SCH (09:00)
[2020-08-18] MEDS ORDERED: FERROUS SULFATE 325 MG TAB PO SCH (09:00)
--- NOTE | 2020-08-18 11:39 | XCELERA ---
[id number]
--- NOTE | 2020-08-18 12:25 | Cardiology Consultation ---
Date of Consultation August 18, 2020 Assessment & Plan (1) Dyspnea: The patient has developed fairly rapidly progressive dyspnea on exertion. She is always known to have an element of hypovolemia and it is very likely that she developed some pulmonary congestion due to her known diastolic dysfunction and possibly elevated blood pressures recently. She diuresed nicely yesterday with appropriate improvement in symptoms. She would benefit from paying more attention to her edema and weight at home. In the past she has been advised to take more diuretic more regularly. She has had some concerns about her solitary kidney and diuretic effect on her kidney function. I think if she is feeling well, she would be stable for discharge. She should measure her weight at home and take extra diuretic if her weight increases above this threshold by 2 lb over 2 days. This is similar to instructions provided to her previously. (2) Hypertensive urgency: Unclear etiology. Blood pressure normal currently. She did not receive lisinopril and were still waiting on her chemistry from today to evaluate her renal function. It seems that generally speaking her outpatient medical regimen is adequate. Perhaps with better diuresis and volume control will see less elevated blood pressures. (3) Complete left bundle branch block (LBBB): No evidence of cardiomyopathy on her echocardiogram. This abnormalities of unknown duration. He can be associated with coronary disease as well. He does have an element of exertional chest pressure and dyspnea. Unclear if this is related to her deconditioning, diastolic heart failure or possibly coronary disease. No evidence of an acute coronary syndrome. I think an outpatient perfusion study would be reasonable. (4) Aortic stenosis: Very mild on echocardiogram today. Murmur on examination. No clinical concern at this point in time. History of Present Illness Reason for Consultation: New left bundle branch block, diastolic heart failure Requesting Physician: Maurice Attending Physician: Jean Richards MD History of Present Illness The patient is a 65-year-old woman with a longstanding history of diastolic heart failure, hypertension and obstructive sleep apnea who presented to the emergency room for symptoms of progressive dyspnea. The patient states that for approximately a week and has she has been having worsening shortness of breath. This can occur at rest but is certainly more noticeable with activity. She does not describe overt orthopnea. She does not describe PND, but does use a CPAP machine at nighttime. He has some chronic lower extremity edema which she did not feel was worse recently. She did not notice increasing abdominal girth. She does not weigh herself at home. Based on her breathing difficulty she was sent to the emergency room and noted to be severely hypertensive. She has actually started on a nicardipine infusion and admitted to the intensive care unit. She was also administered 1 dose of intravenous Lasix. Generally the patient is a very sedentary individual. She does not exercise regularly. She performs limited activity at home but does not have symptoms generally speaking with her limited activity. Walking long distances will produce both dyspnea and a sense of chest pressure. This resolves with rest. This morning she is feeling much better. She states that her lower extremity edema is significantly improved. She has not had breathing difficulty currently but has only been ambulatory around her hospital room. Allergies Allergy/AdvReac Type Severity Reaction Status Date / Time meperidine Allergy Severe CAN'T Verified 08/17/20 14:54 BREATHE,THROAT SWELLS morphine Allergy Severe Anaphylaxis Verified 08/17/20 14:54 Sulfa (Sulfonamide Allergy Intermediate NERVOUS Verified 08/17/20 14:54 Antibiotics) amlodipine Allergy Joint Pain Verified 08/17/20 16:54 clonidine AdvReac Severe severe HTN Verified 08/17/20 14:54 NSAIDS (Non-Steroidal AdvReac Severe ONLY HAS Verified 08/17/20 14:54 Anti-Inflamma ONE KIDNEY vaccines Allergy Anaphylaxis Uncoded 08/17/20 14:55 Home Medications Medication Instructions Recorded Confirmed Type bupropion HCl 150 mg PO QAM 02/24/18 08/17/20 History carvedilol 25 mg PO BID 02/24/18 08/17/20 History glucosamine sulfate [Glucosamine] 500 mg PO BID 02/24/18 08/17/20 History iron 18 mg PO DAILY 02/24/18 08/17/20 History potassium chloride 20 meq PO DAILY 02/24/18 08/17/20 History simvastatin 40 mg PO PM 02/24/18 08/17/20 History hydralazine 25 mg tablet 25 mg PO TID #90 tab 04/12/19 08/17/20 Rx furosemide 40 mg tablet 40 mg PO DAILY #90 tab 07/10/20 08/17/20 Rx lisinopril 40 mg tablet 40 mg PO DAILY #90 tab 07/10/20 08/17/20 Rx calcium carbonate-vitamin D3 1 tab PO HS 08/17/20 08/17/20 History [Calcium + D] lactobacillus combination no.4 3,000 mmu cells PO DAILY 08/17/20 08/17/20 History [Probiotic] multivitamin [Multiple Vitamin] 1 tab PO DAILY 08/17/20 08/17/20 History pantoprazole 20 mg PO BID 08/17/20 08/17/20 History Patient History Medical History (Updated 08/18/20 @ 12:21 by Oscar Canada MD) Back pain Chronic diastolic CHF (congestive heart failure) CKD (chronic kidney disease) Dyslipidemia HTN (hypertension) HTN (hypertension) Single kidney Sleep apnea Varicose vein of leg Surgical History H/O partial nephrectomy S/P lumbar discectomy Family History Other Blood clot in vein Social History Smoking Status: Never smoker Second Hand Exposure: No; Do You Dip or Chew Tobacco: No; Tobacco Cessation Education Requested by Patient: No Hx Alcohol Use: No Hx Substance Use: No Preferred Language: Austrian Communication Ability: Effective Spice Mixer Required: No Beliefs That Will Affect Care: None Current Living Situation: Family Other Information That Helps Us Care for You: No Feels Safe at Home: Yes Safety Concerns: Feels Safe At This Time Assistive Devices: None Review of Systems Review of Systems: All systems reviewed & are unremarkable except as noted in HPI & below Physical Exam Physical Exam: She is alert and oriented x3. Mood affect appear normal. She answered all questions appropriately. HEENT: Sclerae are anicteric. Pupils are equal and reactive to light and accommodation. Extraocular movements were intact. Neuro: Cranial nerves intact Neck: Examination of the submandibular region did not reveal any significant lymphadenopathy. Carotids are palpable bilaterally and free of bruits on auscultation. There was no evidence of jugular venous distention. The thyroid was not enlarged. Lungs: Lungs are clear to auscultation bilaterally. There are no rales wheezes or rhonchi. She has normal respiratory effort without use of accessory muscles. There is normal pulmonary excursion. Cardiac: The rhythm was regular. S1 and S2 were normal. Crescendo systolic murmur. The PMI was not markedly displaced on palpation. Abdomen: The abdomen was soft and nontender. Extremities: Patient has bilateral radial pulses that are equal in intensity. There is no evidence cyanosis or clubbing. Mild bilateral lower extremity edema Skin: There are no rashes noted on examination today. Results & Data ([facility]) Vital Signs (Past 12 Hours) Vital Signs Temp Pulse Pulse Resp BP BP Pulse Ox 08/18/20 11:32 36.3 C L 65 18 128/70 93 08/18/20 08:00 80 08/18/20 07:15 36.8 C 73 13 159/77 H 94 08/18/20 03:59 36.7 C 08/18/20 03:58 80 13 155/72 H 93 08/18/20 00:20 94 H Laboratory Results Abnormal Lab Results 08/17/20 08/17/20 08/17/20 12:36 12:36 12:36 WBC 6.86 RBC 4.12 L Hgb 12.2 Hct 37.7 MCV 91.5 MCH 29.6 MCHC 32.4 RDW Std Deviation 44.4 RDW Coeff of Gaby 13.2 Plt Count 192 MPV 10.7 H Immature Gran % (Auto) 0.3 Neut % (Auto) 70.5 Lymph % (Auto) 17.1 [place] % (Auto) 10.5 Eos % (Auto) 1.3 Baso % (Auto) 0.3 Neut # (Auto) 4.84 Lymph # (Auto) 1.17 L [place] # (Auto) 0.72 H Eos # (Auto) 0.09 Baso # (Auto) 0.02 Immature Gran # (Auto) 0.02 Sodium 142 Potassium 3.5 Chloride 110 H Carbon Dioxide 26 Anion Gap 7.0 BUN 30 H Creatinine 1.34 H Est Cr Clr Drug Dosing 50.3 Est GFR ( Amer) 47.4 Est GFR (Non-Af Amer) 40.9 BUN/Creatinine Ratio 22.2 H Glucose 105 H Calcium 9.4 Total Bilirubin 0.5 AST 16 ALT 27 Alkaline Phosphatase 85 Troponin I < 0.015 NT-Pro-B Natriuret Pep 244 Total Protein 7.6 Albumin 3.9 Globulin 3.7 Albumin/Globulin Ratio 1.1 Lipase 242 TSH 2.080 Random Cortisol Nasal Screen MRSA (PCR) COVID-19 Eval Order SARS-CoV-2 (PCR) Hepatitis C Ab Screen Influenza Type A (PCR) Influenza Type B (PCR) RSV (RT-PCR) 08/17/20 08/17/20 08/17/20 12:36 12:36 12:36 WBC RBC Hgb Hct MCV MCH MCHC RDW Std Deviation RDW Coeff of Gaby Plt Count MPV Immature Gran % (Auto) Neut % (Auto) Lymph % (Auto) [place] % (Auto) Eos % (Auto) Baso % (Auto) Neut # (Auto) Lymph # (Auto) [place] # (Auto) Eos # (Auto) Baso # (Auto) Immature Gran # (Auto) Sodium Potassium Chloride Carbon Dioxide Anion Gap BUN Creatinine Est Cr Clr Drug Dosing Est GFR ( Amer) Est GFR (Non-Af Amer) BUN/Creatinine Ratio Glucose Calcium Total Bilirubin AST ALT Alkaline Phosphatase Troponin I NT-Pro-B Natriuret Pep Total Protein Albumin Globulin Albumin/Globulin Ratio Lipase TSH Cancelled Random Cortisol 15.61 Nasal Screen MRSA (PCR) COVID-19 Eval Order SARS-CoV-2 (PCR) Hepatitis C Ab Screen Neg Influenza Type A (PCR) Influenza Type B (PCR) RSV (RT-PCR) 08/17/20 08/17/20 08/17/20 13:59 13:59 18:24 WBC RBC Hgb Hct MCV MCH MCHC RDW Std Deviation RDW Coeff of Gaby Plt Count MPV Immature Gran % (Auto) Neut % (Auto) Lymph % (Auto) [place] % (Auto) Eos % (Auto) Baso % (Auto) Neut # (Auto) Lymph # (Auto) [place] # (Auto) Eos # (Auto) Baso # (Auto) Immature Gran # (Auto) Sodium Potassium Chloride Carbon Dioxide Anion Gap BUN Creatinine Est Cr Clr Drug Dosing Est GFR ( Amer) Est GFR (Non-Af Amer) BUN/Creatinine Ratio Glucose Calcium Total Bilirubin AST ALT Alkaline Phosphatase Troponin I < 0.015 NT-Pro-B Natriuret Pep Total Protein Albumin Globulin Albumin/Globulin Ratio Lipase TSH Random Cortisol Nasal Screen MRSA (PCR) COVID-19 Eval Order CovFluRsv at [facility] SARS-CoV-2 (PCR) NEGATIVE Hepatitis C Ab Screen Influenza Type A (PCR) Negative Influenza Type B (PCR) Negative RSV (RT-PCR) Negative 08/17/20 20:20 WBC RBC Hgb Hct MCV MCH MCHC RDW Std Deviation RDW Coeff of Gaby Plt Count MPV Immature Gran % (Auto) Neut % (Auto) Lymph % (Auto) [place] % (Auto) Eos % (Auto) Baso % (Auto) Neut # (Auto) Lymph # (Auto) [place] # (Auto) Eos # (Auto) Baso # (Auto) Immature Gran # (Auto) Sodium Potassium Chloride Carbon Dioxide Anion Gap BUN Creatinine Est Cr Clr Drug Dosing Est GFR ( Amer) Est GFR (Non-Af Amer) BUN/Creatinine Ratio Glucose Calcium Total Bilirubin AST ALT Alkaline Phosphatase Troponin I NT-Pro-B Natriuret Pep Total Protein Albumin Globulin Albumin/Globulin Ratio Lipase TSH Random Cortisol Nasal Screen MRSA (PCR) Negative COVID-19 Eval Order SARS-CoV-2 (PCR) Hepatitis C Ab Screen Influenza Type A (PCR) Influenza Type B (PCR) RSV (RT-PCR) Diagnostic Findings Echocardiogram performed today revealed preserved LV systolic function with stage I diastolic dysfunction. Very mild aortic stenosis. No significant LVH. Admission did not reveal any acute cardiopulmonary process Lower extremity duplex in the reveal any DVT. Renal duplex did not reveal any renal artery stenosis. Right kidney is known to be surgically absent. ECG Additional Comments: Normal sinus rhythm with left bundle branch block PG Care Time/CCT Total # of Minutes Spent Total Time Spent with Patient: Total time spent is greater than 50% in coordination of care (as documented) at patient's floor/unit and/or counseling patient: Coding Level of Care Code 24198 Initial Inpt Care Lvl 3 Diagnoses Dyspnea R06.00 Dyspnea type: unspecified Hypertensive urgency I16.0 Complete left bundle branch block (LBBB) I44.7 Aortic stenosis I35.0 (1) Dyspnea Dyspnea type: unspecified Qualified Code(s): R06.00 - Dyspnea, unspecified
--- NOTE | 2020-08-18 18:43 | Discharge Summary ---
Date of Service August 18, 2020 Admission HPI Per Admitting Provider 65 YOF with past medical history significant for one kidney (since , it had to be removed), diastolic dysfunction (55-60% 2019), HTN, CKD III, GERD, obesity, HLD. She is not a very good historian or easy to interview regarding symptoms past or present. Patient came to the ER for increasing dyspnea and chest tightness for 2 weeks. She attributed these symptoms to the COVID vaccine that she received around that time. She has had trouble catching her breath when walking, she feels like the chest discomfort comes and goes and is more like a tightness. She was given a sublingual ntg in the EMD as well as nitro- paste and she "thinks it went away but still feels some burning, like i have to burp. When asked if this was the same discomfort she felt when she had her EGD, she said "I think so" and her says yes, this is how she felt. She says that she has noticed her "legs getting more swollen and was going to take another diuretic pill, but just didn't do it", She does confess to dietary indiscretion as well. During her work-up, it was noted that her BP continued to increase and be refractory to IV agents (hydralazine 10mg IV x1, and Labetalol 10mg IVx 1) and she has since been placed on a Cardene drip, with noted 260/115. The patient will get admitted to PCU for continuation of monitoring, tracking of her BP, trending ECG, and monitoring of her Kidney function. The patient will be given 40mg IV Lasix now for edema that extends up to mid-thigh, and her hydralazine/carvedilol, with goal of removal of Cardene drip. She was noted to have a new LBBB and a negative Troponin I, the [facility] physician Dr. Petty spoke with Dr. Canada from cardiology regarding her ECG and as Troponin I is negative, continue to control BP. Principal Diagnosis Hypertensive urgency New onset left bundle branch block Discharge Exam The patient appeared well Vital signs as documented. Lungs are clear to auscultation and appear unlabored Cardiac exam, Rhythm is regular. Systolic ejection murmur is heard found to be mild aortic stenosis on echo Abdominal exam reveals normal bowel sounds, soft non tender, no masses Extremities are nonedematous and both pedal pulses are normal. Neurologic exam is alert and oriented, no focal loss of strength or sensation Skin is without bruises or rashes Psychologically is without concerns for anxiety or depression. Discharge Data Allergies Allergy/AdvReac Type Severity Reaction Status Date / Time meperidine Allergy Severe CAN'T Verified 08/17/20 14:54 BREATHE,THROAT SWELLS morphine Allergy Severe Anaphylaxis Verified 08/17/20 14:54 Sulfa (Sulfonamide Allergy Intermediate NERVOUS Verified 08/17/20 14:54 Antibiotics) amlodipine Allergy Joint Pain Verified 08/17/20 16:54 clonidine AdvReac Severe severe HTN Verified 08/17/20 14:54 NSAIDS (Non-Steroidal AdvReac Severe ONLY HAS Verified 08/17/20 14:54 Anti-Inflamma ONE KIDNEY vaccines Allergy Anaphylaxis Uncoded 08/17/20 14:55 Consultations 08/17/20 14:33 ED Decision to Admit Stat 08/18/20 08:44 Consult Cardiology Routine Ordered Studies 08/17/20 18:50 US duplex renal artery Routine 08/17/20 19:27 US venous doppler LE Routine Hospital Course (1) Hypertensive urgency: Patient with acute hypertensive urgency now resolved will resume home medications of lasix 40, coreg 25 bid, hydralazine 25 tid, lisinopril 40 given instructions on weight at home to help guage diuretic use, will have outpt appointment for bp check this week (2) Complete left bundle branch block (LBBB): New when compared to 2018 ECG - Troponin I negative x2, -Did see by cardiology who recommend no acute interventions at this time set up for outpatient nuclear scan given her left bundle branch block (3) CKD (chronic kidney disease), stage III: As above, not sure this is acute in the setting of long standing HTN (4) 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 (5) Chronic diastolic CHF (congestive heart failure): Patient does note some dietary indiscretion as well as not taking her extra Lasix dose - Currently appears euvolemic - CXR not overly impressive for LV involvement -echo shows normal EF, mild as, and only grade 1 diastolic dysfunction (6) Dyspnea: resolved, - Bilateral venous ultrasound negative for DVT - Patient is not conversationally dyspneic, and denies orthopnea - no wheeze or crackles on exam (7) Chest pain: Troponin negative x2 - Treat GERD symptoms -resolved will have outpt stress per cardiology evaluation (8) Sleep apnea: Home CPAP (9) Dyslipidemia: - Continue Simvastatin 40 mg QD (10) GERD (gastroesophageal reflux disease): - Continue with pantoprazole Total Time Total Time Spent Total Time Spent (In Minutes): It required greater than 30 minutes to prepare this patient for discharge Discharge Plan Discharge Items Patient Disposition: Home - Self-Care Reason For Visit: CHEST PAIN/HTN Discharge Diagnosis: high blood pressure causing chest pain Activity: Resume your previous activity Non-emergency contact: Primary Care Provider Call non-emergency contact if: you have any medication questions and your symptoms worsen Follow-up/Referrals: Deanna Barney CRNP [Primary Care Provider] - Diet: Low Sodium (2gm) Addtl Attending Provider Instructions: Call 911 and go to the Emergency Room if: * You have tightness or pain in your chest that does not go away with rest or Nitroglycerin * You are very short of breath even with rest Call your doctor if any of the following symptoms or problems start or get worse: * Shortness of breath or difficulty breathing * Wake up at night short of breath * Chest pain * Cough * Swelling of your hands, fee, or legs * More fatigued or tired with your normal activity * Palpitations - sudden fast heart beats WEIGHT * Weigh yourself every morning after using the bathroom. * Use the same scale. * Wear the same amount of clothing. * Write your weight down on your chart. * Call your doctor if you gain more than 2-3 pounds in 1-2 days. MEDICATIONS * Use this discharge instruction sheet for instructions. * Take your medications at the time your doctor ordered. * Do not skip a dose of your medicines. * If you miss a dose of medicine, take as soon as possible, but DO NOT DOUBLE A DOSE. * Read your medicine information when you get home. * Know all of the side effects of your medicine. * Call your doctor's office if you have any side effects. * Be sure all of your doctors know what medicine and herbs you take (including cold, flu, and herbal medicine). * Pain Medicine: If you do not get relief from your pain, please call your doctor for help. Take the following with you to your follow-up doctor appointments: * Weight Chart * Medication List * List of questions Do not drink excessive alcohol, beer or wine. Eat a low salt diet there is some additional information at home Pending Studies at Discharge: No Stand-Alone Forms: My [facility] DNA SEQ, Smoking Cessation Medications and DC Order Prescriptions: Continued furosemide 40 mg tablet 40 mg PO DAILY Qty: 90 RF: 3 lisinopril 40 mg tablet 40 mg PO DAILY Qty: 90 RF: 3 hydralazine 25 mg tablet 25 mg PO TID Qty: 90 RF: 5 carvedilol 25 mg Tablet 25 mg PO BID RF: 0 glucosamine sulfate [Glucosamine] 500 mg Tablet 500 mg PO BID RF: 0 potassium chloride 20 mEq Tablet Extended Release 20 meq PO DAILY RF: 0 bupropion HCl 150 mg Tablet Extended Release 24 Hr 150 mg PO QAM RF: 0 simvastatin 40 mg Tablet 40 mg PO PM RF: 0 iron 18 mg Tablet 18 mg PO DAILY RF: 0 calcium carbonate-vitamin D3 600 mg(1,500mg) -200 unit Tablet 1 tab PO HS RF: 0 pantoprazole 20 mg tablet,delayed release (DR/EC) 20 mg PO BID RF: 0 multivitamin Tablet 1 tab PO DAILY RF: 0 Probiotic 3 billion cell Capsule 3,000 mmu cells PO DAILY RF: 0 Discharge Orders: Discharge Order (Routine); Ordered 08/18/20 Ordered By: Jean Price/Other Patient Handouts: Low-Salt Choices, Heart Failure: Tracking Your Weight, Coping with Heart Failure Admission Data Admit Date/Time: 08/17/20 18:33 Attending Provider: Jean Richards Admit Provider: Renny Posadas Primary Care Provider: Deanna Barney Other Providers: Renny Posadas ; sOcar Canada Other Interventions: Discharge Summary Assessment (RN) Last Done: 08/18/20 15:49 Coding Level of Care Code D/C Day Management >30 mins Diagnoses Hypertensive urgency I16.0 Complete left bundle branch block (LBBB) I44.7 CKD (chronic kidney disease), stage III N18.32 Chronic kidney disease stage 3 subtype: stage 3b (GFR 30-44) Single kidney Z90.5 Chronic diastolic CHF (congestive heart failure) I50.32 Dyspnea R06.00 Dyspnea type: unspecified Chest pain R07.9 Chest pain type: unspecified Sleep apnea G47.30 Sleep apnea type: unspecified type Dyslipidemia E78.5 GERD (gastroesophageal reflux disease) K21.9
== END 2020-08-18 17:00 | disposition home or self-care (01) ==
LOC: ED 12:07 → 1E 18:33 → SUATTDRO 18:33 → INTOOBSV 18:33 → 1E 19:14

== ENCOUNTER 2025-04-18 17:37 | Observation (INO) ==
[2025-04-18 18:23] LABS: Hematocrit (blood only) 34.3 % (37.0-47.0); Hemoglobin 11.3 g/dL (12.0-16.0); Immature Granulocytes # (auto) 0.04 K/uL (0.01-0.20); Immature Granulocytes % (auto) 0.4 %; Mean Corpuscular Hemoglobin 29.8 pg (25.0-34.0); Mean Corpuscular Volume 90.5 fL (80.0-100.0); Platelet Count 216 K/uL (130-400); RDW Standard Deviation 41.7 fL (36.4-46.3); Red Blood Count 3.79 M/uL (4.20-5.40); White Blood Count 10.07 K/ul (4.8-10.8)
[2025-04-18 18:42] LABS: Alanine Aminotransferase 12.0 U/L (7-52); Albumin Globulin Ratio 1.4 (0.9-2); Albumin Level 4.2 gm/dl (3.4-5.0); Alkaline Phosphatase 88.0 U/L (34-104); Anion Gap 10.0 (3-11); Bilirubin,Total 0.5 mg/dl (0.2-1.0); Blood Urea Nitrogen 37.0 mg/dl (6-23); Calcium 9.3 mg/dl (8.6-10.3); Carbon Dioxide 24.0 mmol/L (21-32); Chloride 108.0 mmol/L (98-107); Creatinine Clr Calc Pharmacy 33.7 ml/min; Globulin 3.0 gm/dl (2.5-4.0); Glucose 125.0 mg/dl (70-99(Fasting)); Potassium 3.7 mmol/L (3.5-5.1); Sodium 142.0 mmol/L (136-145); Total Protein 7.2 gm/dl (6.0-8.3)
--- NOTE | 2025-04-18 21:05 | Emergency Department Note ---
History of Present Illness General Chief complaint: Infection Stated complaint: INFECTION IN LEGS Time Seen by Provider: 04/18/25 19:04 Source: patient Mode of arrival: ambulatory Limitations: no limitations History of Present Illness tracking patient is a 69-year-old female presents today for recurrent cellulitis of her left lower leg. She had an infected soft tissue hematoma that was drained in the OR on 04/01/2025. Since then she has been on multiple rounds of antibiotics with increasing redness and swelling to the left leg. She was recently switched to clindamycin on Monday without any improvement. She denies any fevers, chills, body aches, intractable pain, numbness or weakness to her left leg. Denies any drainage from the area. She had her stitches removed today and was told to come in to the ER for IV antibiotics. Home Medications Medication Instructions Recorded Confirmed Type iron 18 mg tablet 28 mg PO DAILY 02/24/18 04/14/25 History lactobacillus combination no.4 3 3,000 mmu cells PO DAILY 08/17/20 04/14/25 History billion cell capsule (Probiotic) ascorbate calcium (vitamin C) 500 500 mg PO DAILY 07/30/21 04/14/25 History mg tablet triamcinolone acetonide 0.1 % 1 applic topical BID PRN skin 11/03/23 04/14/25 Rx topical cream irritation #80 grams potassium chloride 20 mEq 20 meq PO DAILY #90 tabs 05/30/24 04/14/25 Rx tablet,extended release calcium 600 mg (as 1 tab PO Q2D 07/12/24 04/14/25 History carbonate)-vitamin D3 5 mcg (200 unit) tablet pantoprazole 20 mg tablet,delayed 20 mg PO BID #180 tabs 09/04/24 04/14/25 Rx release Cbd Gummy 1 dose PO QAM 01/06/25 04/14/25 History Metamucil Fiber Gummy 1 dose PO DAILY 01/06/25 04/14/25 History Turmeric Curcumin Complex 1 tab PO DAILY 01/06/25 04/14/25 History acetaminophen 500 mg tablet 500 mg PO UD PRN Pain 01/06/25 04/14/25 History (Tylenol Extra Strength) albuterol sulfate 90 mcg/actuation 2 inh inhalation UD PRN hx 01/06/25 04/14/25 History aerosol inhaler pneumonia ashwagandha extract 500 mg capsule 2,100 mg PO DAILY 01/06/25 04/14/25 History baclofen 10 mg tablet 10 mg PO UD PRN muscle spasm 01/06/25 04/14/25 History cranberry concentrate-ascorbic 1 cap PO DAILY 01/06/25 04/14/25 History acid 140 mg-100 mg capsule (Cranberry Plus Vitamin C) cyanocobalamin (vitamin B-12) 25 mcg PO DAILY 01/06/25 04/14/25 History 1,000 mcg tablet (Vitamin B-12) fluticasone propionate 50 2 spray intranasal UD PRN allergies 01/06/25 04/14/25 History mcg/actuation nasal spray,suspension glucosamine sulf dipot 1 cap PO DAILY 01/06/25 04/14/25 History chlr,msm,chond 550 mg-C 30 mg-christian 1 mg capsule (Glucosamine Chondroitin) mupirocin 2 % topical ointment 1 applic topical UD 01/06/25 04/14/25 History zinc 50 mg tablet 50 mg PO Q2D 01/06/25 04/14/25 History carvedilol 25 mg tablet 25 mg PO BID #180 tabs 02/14/25 04/14/25 Rx furosemide 40 mg tablet 60 mg (1.5 x 40 mg) PO DAILY #150 02/14/25 04/14/25 Rx tabs hydralazine 50 mg tablet 50 mg PO TID #270 tabs 02/14/25 04/14/25 Rx lisinopril 20 mg tablet 20 mg PO BID #180 tabs 02/14/25 04/14/25 Rx bupropion HCl 150 mg 24 hr tablet, 150 mg PO HS #30 tabs 02/26/25 04/14/25 Rx extended release simvastatin 40 mg tablet 40 mg PO QPM #30 tabs 02/26/25 04/14/25 Rx biotin 2,500 mcg chewable tablet 5,000 mcg PO DAILY 03/30/25 04/14/25 History clindamycin HCl 300 mg capsule 300 mg PO Q6H 5 days #20 caps 04/14/25 04/14/25 Rx tirzepatide (weight loss) 2.5 2.5 mg (0.5 mL) subcut Q7D #2 mL 04/14/25 04/14/25 Rx mg/0.5 mL subcutaneous pen injector (Zepbound) Allergies Allergy/AdvReac Type Severity Reaction Status Date / Time meperidine Allergy Severe CAN'T Verified 04/14/25 12:51 BREATHE,THROAT SWELLS morphine Allergy Severe Anaphylaxis Verified 04/14/25 12:51 amlodipine Allergy Unknown Joint Pain Verified 04/14/25 12:51 and feet swelling clonidine AdvReac Unknown "it was a Verified 04/14/25 12:51 patch"severe HTN Iodinated Contrast Media AdvReac Unknown " i always Verified 04/14/25 12:51 say no" solitary kidney NSAIDS (Non-Steroidal AdvReac Unknown don't take Verified 04/14/25 12:51 Anti-Inflamma any, only have one kidney Sulfa (Sulfonamide AdvReac Unknown nervousness Verified 04/14/25 12:51 Antibiotics) a long time ago injection Allergy Unknown see notes Uncoded 04/14/25 12:51 vaccines Allergy Unknown see notes: Uncoded 04/14/25 12:51 Past Med/Surg History Problem List (Updated 04/18/25 @ 21:12 by Radames Reyes MD) Cellulitis of left leg (Acute) Class 3 severe obesity due to excess calories with body mass index (BMI) of 45.0 to 49.9 in adult ZACHARY on CPAP Left leg cellulitis Hematoma (Acute) Left leg swelling (Acute) Left leg pain Right rotator cuff tendonitis Arthritis of right hip Bursitis of right hip Avascular necrosis Pelvic and perineal pain Frequent loose stools Anemia Chronic venous stasis dermatitis of both lower extremities Myofascial pain Ischial pain Sinusitis Status post partial thyroidectomy Weakness of left lower extremity Lumbar disc herniation with radiculopathy Left L3-4 lateral foraminal Morbid obesity with BMI of 40.0-44.9, adult Disc degeneration, lumbar Hx of decompressive lumbar laminectomy Left L5-S1 Lumbar back pain with radiculopathy affecting left lower extremity Chronic heart failure with preserved ejection fraction Vitamin D deficiency Aortic stenosis GERD (gastroesophageal reflux disease) CKD (chronic kidney disease), stage III Dyspnea Complete left bundle branch block (LBBB) (Acute) Chest pain (Acute) Sleep apnea Single kidney Varicose vein of leg Dyslipidemia Chronic diastolic CHF (congestive heart failure) Wrist pain, right Right wrist tendinitis Knee pain, right Right knee DJD S/P lumbar discectomy (Acute) HTN (hypertension) (Chronic) Back pain (Acute) Medical History (Updated 04/18/25 @ 21:12 by Radames Ryees MD) Left leg pain Failure of outpatient treatment Cellulitis Cellulitis Encounter for pre-operative examination Complete left bundle branch block (LBBB) pt verifies something mentioned about this in her hx, not sure further details. Chronic diastolic (congestive) heart failure pt reports "pumps good but it doesn't relax" Difficult intravenous access History of colon polyps never cancerous per pt Avascular necrosis just in my right hip per pt History of fall (11/2023) went to pain clinic [facility], [facility] at that time, nothing found per pt. pain started dec or jan 2024; hurts to sit down, around vulva area. Starting to get better. Pt voices she is not sure if this might be related to hip problem or another issue. Pt reports this was discussed with pcp and a blood test was done to check for a disease but she did not have it. Unable to obtain further details. Stasis dermatitis of both legs pt voices concerned about this due to upcoming sx, had skin cut left orr about 15 months ago, pt continues to observes skin impairment issue in that area. pt voices that the cut took awhile to heal and pt is concerned about her incision healing for upcoming hip replacment sx 01/22/25. History of sciatica History of back problems Depression Chronic venous insufficiency Anemia Pt reports her iron is always low and borderline anemia. GERD (gastroesophageal reflux disease) History of postoperative nausea and vomiting with my second back surgery did not have any problems with n/v. done at [facility] 5-10 yr ago, pt is not sure the date. History of COVID-19 end of 2023. no hx hospitalization. Single kidney Dyslipidemia HTN (hypertension) History of recurrent UTIs Sleep apnea cpap Aortic stenosis pt reprots "stiff heart doesn't pump right" CKD (chronic kidney disease) has solitary kidney, Dr. Mendosa. Surgical History History of colonoscopy History of surgery polyps removed from uterus, pt not sure further surgical details. History of back surgery cleaned up scar tissue History of lumbar discectomy History of cardiac cath "15-20 years ago I am not sure why but everything was fine" denies stent(s). H/O section H/O thyroidectomy partial H/O partial nephrectomy right "removed it completely" Family History Sister Family history of reaction to anesthesia per pt: I think my sister had a hard time coming out of Other Blood clot in vein Diabetes Denies family history of Ovarian cancer Prostate cancer Breast cancer Colorectal cancer Social History Smoking Status: Never smoker Second Hand Exposure: No; Do You Dip or Chew Tobacco: No; Hx Alcohol Use: No Hx Substance Use: No Preferred Language: Wolof Communication Ability: Effective Biological Sciences Professor Required: No Beliefs That Will Affect Care: Advent Current Living Situation: Spouse current occupational status: retired Feels Safe at Home: Yes Diet: regular caffeine: Yes Dental Care, Regularly: Yes Physical Activity Frequency: Does not Exercise Seatbelt Use: always Sunscreen Use: No Assistive Devices: Cane and CPAP Review of Systems Review of systems negative outside of positive findings mentioned in HPI. Physical Exam Vital Signs Vital Signs - 24 hr 04/18/25 17:46 04/18/25 18:51 04/18/25 19:38 Temperature 37 C Temperature Source Temporal Artery Scan Pulse Rate 89 86 Pulse Rate [Apical] 84 Pulse Rhythm [Apical] Regular Pulse Strength [Apical] Normal Respiratory Rate 20 14 Respiratory Effort / Characteristics Non-Labored Spontaneous Non-Labored Spontaneous Respiratory Depth Normal Normal Respiratory Pattern Regular Blood Pressure 197/81 H Blood Pressure [Right Arm] 152/84 H Blood Pressure Mean 119 Blood Pressure Mean [Right Arm] 106 Blood Pressure Position [Right Arm] Sitting Pulse Oximetry 96 97 Oxygen Delivery Method Room Air Room Air Sepsis Recent Fever Within 48 Hours No Sepsis New/Unexplained Change in Mental Status No Sepsis Action Taken by Nursing No Action Required See below Constitutional WD/WN, vitals as above Respiratory normal respiratory effort, lungs clear to auscultation Cardiovascular RRR, no murmur, no edema Musculoskeletal no cyanosis or clubbing, extremities motor strength 5/5 Skin Blanching erythema noted to the lateral portion of the left calf extending from above the left ankle joint to below the left tibia with intact incision site on the left, no fluctuance or drainage noted Medical Decision Making Differential Diagnosis DDx includes but not limited to: Cellulitis, myositis, abscess, necrotizing fasciitis Medical Records Attestation: I reviewed the patient's medical records. Home Medications Current Medication List: was personally reviewed by me Laboratory Data Attestation: I reviewed the patient's lab results. 04/18/25 18:06 04/18/25 18:06 Lab Results 04/18/25 Range/Units 18:06 WBC 10.07 (4.8-10.8) K/ul RBC 3.79 L (4.20-5.40) M/uL Hgb 11.3 L (12.0-16.0) g/dL Hct 34.3 L (37.0-47.0) % MCV 90.5 (80.0-100.0) fL MCH 29.8 (25.0-34.0) pg MCHC 32.9 (32.0-36.0) g/dL RDW Std Deviation 41.7 (36.4-46.3) fL RDW Coeff of Gaby 12.7 (11.5-14.5) % Plt Count 216 (130-400) K/uL MPV 10.7 (9.4-12.4) fL Immature Gran % (Auto) 0.4 % Neut % (Auto) 73.8 % Lymph % (Auto) 14.3 % Collin % (Auto) 10.3 % Eos % (Auto) 0.8 % Baso % (Auto) 0.4 % Neut # (Auto) 7.43 H (1.40-6.50) K/uL Lymph # (Auto) 1.44 (1.20-3.40) K/uL Collin # (Auto) 1.04 H (0.11-0.59) K/uL Eos # (Auto) 0.08 (0.00-0.50) K/uL Baso # (Auto) 0.04 (0.00-0.20) K/uL Immature Gran # (Auto) 0.04 (0.01-0.20) K/uL Sodium 142 (136-145) mmol/L Potassium 3.7 (3.5-5.1) mmol/L Chloride 108 H (98-107) mmol/L Carbon Dioxide 24 (21-32) mmol/L Anion Gap 10 (3-11) BUN 37 H (6-23) mg/dl Creatinine 1.98 H (0.6-1.2) mg/dl Est Cr Clr Drug Dosing 33.7 ml/min eGFR 26.54 BUN/Creatinine Ratio 18.7 (10-20) Glucose 125 H (70-99(Fasting)) mg/dl Calcium 9.3 (8.6-10.3) mg/dl Total Bilirubin 0.5 (0.2-1.0) mg/dl AST 15 (13-39) U/L ALT 12 (7-52) U/L Alkaline Phosphatase 88 (34-104) U/L Total Protein 7.2 (6.0-8.3) gm/dl Albumin 4.2 (3.4-5.0) gm/dl Globulin 3.0 (2.5-4.0) gm/dl Albumin/Globulin Ratio 1.4 (0.9-2) MDM Narrative Patient is a 69-year-old female presents with worsening some redness and swelling in the setting of recent surgery for an infected hematoma of her left leg. Afebrile nontoxic-appearing here today. She was sent over from orthopedic office for concerns for failed outpatient therapy. She has been on clindamycin since Monday. Lab work was obtained. No evidence of severe sepsis. No leukocytosis or bandemia noted. Blood cultures ordered. I reviewed her prior wound culture from her surgery on the second of this month. Sensitivities reviewed and linezolid initiated here in the ED. Discussed the case with the orthopedic PA who recommends hospital admission as well as IV antibiotics. They will consult as needed. Patient accepted by the hospitalist service for further management. Impression & Plan Cellulitis of left leg Discharge Plan Visit Data Chief Complaint: Infection Stated Complaint: INFECTION IN LEGS ED Provider: Radames Reyes Discharge Problem: Cellulitis of left leg Patient Disposition: Home - Self-Care Condition: Good Forms Stand Alone Forms: My [facility] [email or web address], Important Visit Information Prescriptions Prescriptions: No Action potassium chloride 20 mEq tablet extended release 20 meq PO DAILY Qty: 90 3RF pantoprazole 20 mg tablet,delayed release (DR/EC) 20 mg PO BID Qty: 180 3RF hydralazine 50 mg tablet 50 mg PO TID Qty: 270 3RF simvastatin 40 mg tablet 40 mg PO QPM Qty: 30 3RF bupropion HCl 150 mg tablet extended release 24 hr 150 mg PO HS Qty: 30 3RF ascorbate calcium (vitamin C) 500 mg tablet 500 mg PO DAILY Patient Comments: off and on triamcinolone acetonide 0.1 % cream 1 applic topical BID PRN (Reason: skin irritation) Qty: 80 0RF Patient Comments: legs Rx Instructions: Apply to the lower legs twice daily for up to 2 weeks as needed for flaring. carvedilol 25 mg tablet 25 mg PO BID Qty: 180 3RF lisinopril 20 mg tablet 20 mg PO BID Qty: 180 3RF Hold Instructions: Resume on 04/07/25. furosemide 40 mg tablet 60 mg PO DAILY Qty: 150 3RF Hold Instructions: Resume on 04/07/25. Rx Instructions: MAY TAKE ADDITIONAL 40 mg TABLET daily as needed for wt gain, edema, shortness of breath clindamycin HCl 300 mg capsule 300 mg PO Q6H 5 Days Qty: 20 0RF Zepbound 2.5 mg/0.5 mL pen injector 2.5 mg subcut Q7D Qty: 2 0RF iron 18 mg Tablet 28 mg PO DAILY Probiotic 3 billion cell Capsule 3,000 mmu cells PO DAILY calcium carbonate-vitamin D3 600 mg-5 mcg (200 unit) tablet 1 tab PO Q2D Glucosamine Chondroitin 550-30-1 mg Capsule 1 cap PO DAILY baclofen 10 mg tablet 10 mg PO UD PRN (Reason: muscle spasm) Patient Comments: have it, don't really take it mupirocin 2 % ointment 1 applic topical UD Patient Comments: I don't know albuterol sulfate 90 mcg/actuation HFA aerosol inhaler 2 inh inhalation UD PRN (Reason: hx pneumonia ) fluticasone propionate 50 mcg/actuation spray,suspension 2 spray intranasal UD PRN (Reason: allergies) cyanocobalamin (vitamin B-12) [Vitamin B-12] 1,000 mcg Tablet 25 mcg PO DAILY Patient Comments: have 1000 mcg tablets cut into 4 , take 25 mcg per day Cranberry Plus Vitamin C 140-100 mg Capsule 1 cap PO DAILY Patient Comments: 4200 mg acetaminophen [Tylenol Extra Strength] 500 mg Tablet 500 mg PO UD PRN (Reason: Pain) Patient Comments: take anywhere from 3-6 tablets per day zinc 50 mg Tablet 50 mg PO Q2D ashwagandha extract 500 mg Capsule 2,100 mg PO DAILY Patient Comments: organic ashwagandha Cbd Gummy 1 dose PO QAM Patient Comments: 25 mg cbd and 1 mg thc Metamucil Fiber Gummy 1 dose PO DAILY Patient Comments: 5 grams Turmeric Curcumin Complex 1 tab PO DAILY biotin 2,500 mcg Tablet,Chewable 5,000 mcg PO DAILY Referrals Referrals: Christian Cohn DO [Primary Care Provider] -
[2025-04-18] MEDS: LINEZOLID 600 MG/300 ML BAG IV STA (21:48)
--- NOTE | 2025-04-18 21:52 | History & Physical Report ---
Date of Service April 18, 2025 Assessment & Plan (1) Cellulitis of left leg: (2) Class 3 severe obesity due to excess calories with body mass index (BMI) of 45.0 to 49.9 in adult: (3) ZACHARY on CPAP: (4) Arthritis of right hip: (5) Chronic venous stasis dermatitis of both lower extremities: (6) CKD (chronic kidney disease), stage III: (7) (HFpEF) heart failure with preserved ejection fraction: (8) Dyslipidemia: Plan Patient is a 69 y/o F w/ PMHx of ZACHARY on CPAP, OA, chronic venous stasis, GERD, HTN, HLD, CKD-3, solitary kidney, MDD, and IBS who was admitted for management of cellulitis of LLE. Cellulitis LLE Hx Infected intramuscular hematoma Recent admission from 03/3011 25 for management of infected intramuscular hematoma/cellulitis with I&D done on 04/01. Culture of wound after I&D growing staph epidermis that is resistant to t etracyclines, Bactrim, Oxacillin, and Erythromycin. Was sensitive to linezolid and clindamycin Patient switched from doxycycline to cefpodoxime to clindamycin earlier this week, however did not have the first dose of until today or yesterday Rather than treatment failure, consider more likely patient had been on abx course to which noted bacteria was resistant to, and has only gotten one dose of the Clindamycin to which cultures did show sensitivity to. Will admit to Med/Surg as Obs Will manage with Linezolid IV, and if patient responds well with this can discharge on oral equivalent; hold home Wellbutrin while on Linezolid LUISA // CKD-3 Hx solitary kidney Baseline cr 1.2-1.4; Cr at time of admission was 1.98 Will manage with gentle fluids for now Monitor am labs HFpEF Patient appears euvolemic to hypovolemic on exam; b/l LE swelling more likely related to hx of chronic venous stasis; no SOB/OLIVEIRA TTE from 08/2023 showing EF of 55-60% and showing sclerotic aortic valve w/o significant stenosis ZACHARY Patient brought home CPAP; can use while admitted HTN - Continue home Hydralazine and Coreg; hold Lisinopril until kidney function improves Dispo: Med/Surg VTE ppx: Heparin Code Status: FULL History of Present Illness Chief Complaint: Cellulitis Primary Care Provider: Christian Cohn DO Patient is a 69 y/o F w/ PMHx of ZACHARY on CPAP, OA, chronic venous stasis, GERD, HTN, HLD, CKD-3, solitary kidney, MDD, and IBS who comes to the ED per recommendation of her surgeon due to noted worsening of her LLE cellulitis. Patient was recently admitted from 03/30-04/04 after she sustained a fall that resulted in an intramuscular hematoma that got infected and cellulitis, and although she states this feels similar to how she felt prior to this admission, it is not as severe. At the time of previous admission, she was treated with IV Cefepime and had I&D done on 04/01 and culture of what was drained showed Staph. Epidermidis. She was discharged with Cefpodoxime and Doxycycline due to concern of biofilm but at the time of admission sensitivities were still pending. She was taking abx as was prescribed but did not note much difference in her cellulitis and notes that although it was not more painful, the redness did spread. She was seen by her PCP on 04/14 and her abx was switched to Clindamycin, of which she has only taken once dose to date. She went to her Surgeon office to get the sutures removed after her I&D, and was told her cellulitis was worse and was advised to go to the ED. Denies having fevers, chills, N/V/D, changes in PO intake, weakness, or other systemic sxs. Labs/Imaging: CBC with relative leukocytosis of 10.07 with neutrophilic predominance, hemoglobin 11.3, platelets of 216. CMP without significant electrolyte abnormalities, creatinine above baseline at 1.98 (baseline around 1.21.4), and blood sugar of 125. LFTs unremarkable. Blood cultures collected and pending. Medical History: [Reviewed] Medications: [Reviewed] Surgical History: [Reviewed] Family history: [Reviewed] Allergies: [Reviewed] Social History: [Reviewed] Code Status: FULL Allergies Allergy/AdvReac Type Severity Reaction Status Date / Time meperidine Allergy Severe CAN'T Verified 04/14/25 12:51 BREATHE,THROAT SWELLS morphine Allergy Severe Anaphylaxis Verified 04/14/25 12:51 amlodipine Allergy Unknown Joint Pain Verified 04/14/25 12:51 and feet swelling clonidine AdvReac Unknown "it was a Verified 04/14/25 12:51 patch"severe HTN Iodinated Contrast Media AdvReac Unknown " i always Verified 04/14/25 12:51 say no" solitary kidney NSAIDS (Non-Steroidal AdvReac Unknown don't take Verified 04/14/25 12:51 Anti-Inflamma any, only have one kidney Sulfa (Sulfonamide AdvReac Unknown nervousness Verified 04/14/25 12:51 Antibiotics) a long time ago injection Allergy Unknown see notes Uncoded 04/14/25 12:51 vaccines Allergy Unknown see notes: Uncoded 04/14/25 12:51 Home Medications Medication Instructions Recorded Confirmed Type iron 18 mg tablet 28 mg PO DAILY 02/24/18 04/14/25 History lactobacillus combination no.4 3 3,000 mmu cells PO DAILY 08/17/20 04/14/25 History billion cell capsule (Probiotic) ascorbate calcium (vitamin C) 500 500 mg PO DAILY 07/30/21 04/14/25 History mg tablet triamcinolone acetonide 0.1 % 1 applic topical BID PRN skin 11/03/23 04/14/25 Rx topical cream irritation #80 grams potassium chloride 20 mEq 20 meq PO DAILY #90 tabs 05/30/24 04/14/25 Rx tablet,extended release calcium 600 mg (as 1 tab PO Q2D 07/12/24 04/14/25 History carbonate)-vitamin D3 5 mcg (200 unit) tablet pantoprazole 20 mg tablet,delayed 20 mg PO BID #180 tabs 09/04/24 04/14/25 Rx release Cbd Gummy 1 dose PO QAM 01/06/25 04/14/25 History Metamucil Fiber Gummy 1 dose PO DAILY 01/06/25 04/14/25 History Turmeric Curcumin Complex 1 tab PO DAILY 01/06/25 04/14/25 History acetaminophen 500 mg tablet 500 mg PO UD PRN Pain 01/06/25 04/14/25 History (Tylenol Extra Strength) albuterol sulfate 90 mcg/actuation 2 inh inhalation UD PRN hx 01/06/25 04/14/25 History aerosol inhaler pneumonia ashwagandha extract 500 mg capsule 2,100 mg PO DAILY 01/06/25 04/14/25 History baclofen 10 mg tablet 10 mg PO UD PRN muscle spasm 01/06/25 04/14/25 History cranberry concentrate-ascorbic 1 cap PO DAILY 01/06/25 04/14/25 History acid 140 mg-100 mg capsule (Cranberry Plus Vitamin C) cyanocobalamin (vitamin B-12) 25 mcg PO DAILY 01/06/25 04/14/25 History 1,000 mcg tablet (Vitamin B-12) fluticasone propionate 50 2 spray intranasal UD PRN allergies 01/06/25 04/14/25 History mcg/actuation nasal spray,suspension glucosamine sulf dipot 1 cap PO DAILY 01/06/25 04/14/25 History chlr,msm,chond 550 mg-C 30 mg-christian 1 mg capsule (Glucosamine Chondroitin) mupirocin 2 % topical ointment 1 applic topical UD 01/06/25 04/14/25 History zinc 50 mg tablet 50 mg PO Q2D 01/06/25 04/14/25 History carvedilol 25 mg tablet 25 mg PO BID #180 tabs 02/14/25 04/14/25 Rx furosemide 40 mg tablet 60 mg (1.5 x 40 mg) PO DAILY #150 02/14/25 04/14/25 Rx tabs hydralazine 50 mg tablet 50 mg PO TID #270 tabs 02/14/25 04/14/25 Rx lisinopril 20 mg tablet 20 mg PO BID #180 tabs 02/14/25 04/14/25 Rx bupropion HCl 150 mg 24 hr tablet, 150 mg PO HS #30 tabs 02/26/25 04/14/25 Rx extended release simvastatin 40 mg tablet 40 mg PO QPM #30 tabs 02/26/25 04/14/25 Rx biotin 2,500 mcg chewable tablet 5,000 mcg PO DAILY 03/30/25 04/14/25 History clindamycin HCl 300 mg capsule 300 mg PO Q6H 5 days #20 caps 04/14/25 04/14/25 Rx tirzepatide (weight loss) 2.5 2.5 mg (0.5 mL) subcut Q7D #2 mL 04/14/25 04/14/25 Rx mg/0.5 mL subcutaneous pen injector (Zepbound) Past Med/Surg History Problem List (Updated 04/18/25 @ 22:06 by Marian Sethi MD) (HFpEF) heart failure with preserved ejection fraction Cellulitis of left leg (Acute) Class 3 severe obesity due to excess calories with body mass index (BMI) of 45.0 to 49.9 in adult ZACHARY on CPAP Left leg cellulitis Hematoma (Acute) Left leg swelling (Acute) Left leg pain Right rotator cuff tendonitis Arthritis of right hip Bursitis of right hip Avascular necrosis Pelvic and perineal pain Frequent loose stools Anemia Chronic venous stasis dermatitis of both lower extremities Myofascial pain Ischial pain Sinusitis Status post partial thyroidectomy Weakness of left lower extremity Lumbar disc herniation with radiculopathy Left L3-4 lateral foraminal Morbid obesity with BMI of 40.0-44.9, adult Disc degeneration, lumbar Hx of decompressive lumbar laminectomy Left L5-S1 Lumbar back pain with radiculopathy affecting left lower extremity Chronic heart failure with preserved ejection fraction Vitamin D deficiency Aortic stenosis GERD (gastroesophageal reflux disease) CKD (chronic kidney disease), stage III Dyspnea Complete left bundle branch block (LBBB) (Acute) Chest pain (Acute) Sleep apnea Single kidney Varicose vein of leg Dyslipidemia Chronic diastolic CHF (congestive heart failure) Wrist pain, right Right wrist tendinitis Knee pain, right Right knee DJD S/P lumbar discectomy (Acute) HTN (hypertension) (Chronic) Back pain (Acute) Medical History (Updated 04/18/25 @ 22:06 by Marian Sethi MD) Left leg pain Failure of outpatient treatment Cellulitis Cellulitis Encounter for pre-operative examination Complete left bundle branch block (LBBB) pt verifies something mentioned about this in her hx, not sure further details. Chronic diastolic (congestive) heart failure pt reports "pumps good but it doesn't relax" Difficult intravenous access History of colon polyps never cancerous per pt Avascular necrosis just in my right hip per pt History of fall (11/2023) went to [facility] at that time, nothing found per pt. pain started dec or jan 2024; hurts to sit down, around vulva area. Starting to get better. Pt voices she is not sure if this might be related to hip problem or another issue. Pt reports this was discussed with pcp and a blood test was done to check for a disease but she did not have it. Unable to obtain further details. Stasis dermatitis of both legs pt voices concerned about this due to upcoming sx, had skin cut left orr about 15 months ago, pt continues to observes skin impairment issue in that area. pt voices that the cut took awhile to heal and pt is concerned about her incision healing for upcoming hip replacment sx 01/22/25. History of sciatica History of back problems Depression Chronic venous insufficiency Anemia Pt reports her iron is always low and borderline anemia. GERD (gastroesophageal reflux disease) History of postoperative nausea and vomiting with my second back surgery did not have any problems with n/v. done at [facility] 5-10 yr ago, pt is not sure the date. History of COVID-19 end of 2023. no hx hospitalization. Single kidney Dyslipidemia HTN (hypertension) History of recurrent UTIs Sleep apnea cpap Aortic stenosis pt reprots "stiff heart doesn't pump right" CKD (chronic kidney disease) has solitary kidney, Dr. Mendosa. Surgical History History of colonoscopy History of surgery polyps removed from uterus, pt not sure further surgical details. History of back surgery cleaned up scar tissue History of lumbar discectomy History of cardiac cath "15-20 years ago I am not sure why but everything was fine" denies stent(s). H/O section H/O thyroidectomy partial H/O partial nephrectomy right "removed it completely" Family History Sister Family history of reaction to anesthesia per pt: I think my sister had a hard time coming out of Other Blood clot in vein Diabetes Denies family history of Ovarian cancer Prostate cancer Breast cancer Colorectal cancer Social History Smoking Status: Never smoker Second Hand Exposure: No; Do You Dip or Chew Tobacco: No; Hx Alcohol Use: No Hx Substance Use: No Preferred Language: Gambian Communication Ability: Effective Screener And Blender Required: No Beliefs That Will Affect Care: None Current Living Situation: Spouse current occupational status: retired Other Information That Helps Us Care for You: No Feels Safe at Home: Yes Safety Concerns: Feels Safe At This Time Diet: regular caffeine: Yes Dental Care, Regularly: Yes Physical Activity Frequency: Does not Exercise Seatbelt Use: always Sunscreen Use: No Assistive Devices: Cane, CPAP and Glasses Review of Systems Review of Systems: As per HPI Physical Exam Physical Exam: GENERAL: Awake alert and oriented in all spheres, afebrile, nontoxic, no acute distress HEAD: Atraumatic, normocephalic EYES: PERRL, EOM intact THROAT: Normal to visual inspection CHEST: Symmetric chest expansion with respirations CARDIO: regular rate and rhythm, no rubs murmurs or gallops appreciated PULMONARY: Clear to auscultation bilaterally, normal respiratory effort, no respiratory distress GI: Soft, nontender, nondistended EXTREMITIES: Bilateral extremity swelling +1 pitting, mild erythema in distal end of right lower extremity with no appreciated open wounds or lacerations, left lower extremity with warmth/tenderness/erythema extending from her ankle to just below her knee. Vertical incision of the left lower extremity consistent with history of I&D in most recent admission without noted bleeding or purulent discharge. Results & Data Results & Data Vital Signs (Past 12 Hours) Vital Signs Temp Pulse Pulse Resp BP BP Pulse Ox 04/18/25 21:00 85 14 170/77 H 97 04/18/25 19:38 84 14 152/84 H 97 04/18/25 18:51 86 04/18/25 17:46 37 C 89 20 197/81 H 96 O2 Del Method 04/18/25 21:00 Room Air 04/18/25 19:38 Room Air 04/18/25 18:51 04/18/25 17:46 Room Air Supervising Physician Co-Signing Physician Notes Patient seen and examined, chart reviewed, case discussed with Dr. Sethi and I agree with the assessment and plan as above. Patient with history of infected intramuscular hematoma s/p I/D on 04/01 - staph epidermis with multidrug resistance. Patient was recently started on Clindamycin but did not start this medication until yesterday Returns today with worsening pain, swelling and redness Steri strips in place Warmth, redness and tenderness of the left thigh Labs and images reviewed Assessment/Plan Management with Linezolid Pain control Remainder as above Resident Activity Tracking Resident Involvement: Resident Care Provided Care Provided: Adult Hospital Medicine (6) CKD (chronic kidney disease), stage III Chronic kidney disease stage 3 subtype: stage 3b (GFR 30-44) Qualified Code(s): N18.32 - Chronic kidney disease, stage 3b
[2025-04-18] MEDS ORDERED: ONDANSETRON INJ 2 MG/ML 2 ML VIAL IV PRN (23:34)
[2025-04-18] MEDS ORDERED: POLYETHYLENE (MIRALAX) 17 GM PACK PO PRN (23:34)
[2025-04-19] MEDS: ACETAMINOPHEN 325 MG TAB PO PRN (00:04)
[2025-04-19] MEDS: LACTATED RINGER'S 1,000 ML IV SCH (00:20)
[2025-04-19] MEDS: MELATONIN 3 MG TAB PO PRN (00:20)
--- NOTE | 2025-04-19 04:08 | Billing Data ---
Date of Service April 18, 2025 Coding Level of Care Code 14387 INT INP/OBS CARE
[2025-04-19] MEDS: LINEZOLID 600 MG/300 ML BAG IV SCH (09:26)
[2025-04-19] MEDS: ADVANCED PROBIOTIC 625 MG CAPSULE PO SCH (09:26)
[2025-04-19] MEDS: HEPARIN SOD 5,000 UNIT/0.5 ML VIAL SQ SCH (09:26)
[2025-04-19 09:44] LABS: Hematocrit (blood only) 30.3 % (37.0-47.0); Hemoglobin 9.9 g/dL (12.0-16.0); Immature Granulocytes # (auto) 0.03 K/uL (0.01-0.20); Immature Granulocytes % (auto) 0.5 %; Mean Corpuscular Hemoglobin 30.1 pg (25.0-34.0); Mean Corpuscular Volume 92.1 fL (80.0-100.0); Platelet Count 175 K/uL (130-400); RDW Standard Deviation 43.0 fL (36.4-46.3); Red Blood Count 3.29 M/uL (4.20-5.40); White Blood Count 6.15 K/ul (4.8-10.8)
[2025-04-19 10:03] LABS: Anion Gap 11.0 (3-11); Blood Urea Nitrogen 37.0 mg/dl (6-23); Calcium 8.8 mg/dl (8.6-10.3); Carbon Dioxide 23.0 mmol/L (21-32); Chloride 108.0 mmol/L (98-107); Creatinine Clr Calc Pharmacy 37.6 ml/min; Glucose 161.0 mg/dl (70-99(Fasting)); Potassium 3.8 mmol/L (3.5-5.1); Sodium 142.0 mmol/L (136-145)
[2025-04-19 12:37] LABS: Hemoglobin A1C 5.1 % (4.5-5.6)
--- NOTE | 2025-04-19 15:19 | Hospitalist Progress Note ---
Date of Service April 19, 2025 Assessment & Plan (1) Cellulitis of left leg: (2) Hematoma of left lower leg: (3) LUISA (acute kidney injury): (4) ZACHARY on CPAP: (5) Chronic venous stasis dermatitis of both lower extremities: (6) CKD (chronic kidney disease), stage III: (7) (HFpEF) heart failure with preserved ejection fraction: (8) Dyslipidemia: (9) Solitary kidney, acquired: (10) Morbid obesity with BMI of 45.0-49.9, adult: Plan 69yo female with ZACHARY on CPAP, OA, chronic venous stasis, GERD, HTN, Hyperlipidemia, CKD stage 3, solitary kidney, MDD, and morbid obesity who was admitted for cellulitis of LLE. #Cellulitis LLE, with recent admission 03/30-04/04 for I & D of infected LLE intramuscular hematoma - -cultures from the early Mar admit grew staph epi - sens to Linezolid -day #2 of such -would cont IV Linezolid with plans to send home on such at discharge for 1 additional week -the cellulitis on exam today is stable and blood cx's remain negative -if there are new pathogens other than staph epi the Linezolid should be quite adequate (will cover MSSA, MRSA, enterococcus, etc) -will need to check charles of Linezolid prior to d/c home; will send Rx to pharmacy and f/u with [facility] tomorrow -hold wellbutrin while on Linezolid -with respect to recent hematoma - no evidence of reaccumulation on examination #LUISA on CKD stage 3a - -h/o acquired solitary kidney -Baseline creatinine 1.2-1.5; Cr at time of admission was 1.98 -Creatinine mildly improved today -finish current bag of IV fluids then saline lock -hold lasix -hold JOSHUA -repeat BMP am #hyperglycemia - -glucose this AM was ~160 -checked a1c - 5.1% -a1c may not be 100% accurate given her anemia -however, other glucose levels during prior hospital stay were acceptable -will recommend outpatient f/u for this #chronic HFpEF - -euvolemic on exam today -echo from 08/2023 showed EF of 55-60% -holding lasix in the midst of LUISA #ZACHARY - -cont home CPAP #HTN - -Continue home Hydralazine and Coreg -hold Lisinopril and lasix until creatinine improves #morbid obesity - -BMI 45.8 #chronic venous insufficiency - -would benefit from chronic compression -discussed use of custom-fit compression stockings #anemia - -check B12/folate in am -had Fe studies in September 2024 that were wnl -- defer on rechecking them VTE ppx: Heparin 5000 BID family updated at bedside hopefully can d/c home tomorrow AM if cellulitis is stable/improved Admission and Anticipated Discharge Date Admission Date: April 18, 2025 Subjective patient overall feels well the LLE does not hurt she reports having taken about 4 days of clindamycin just prior to admission when the sutures were removed from the LLE wound at the [facility] office the nurse reported a minimal amount of drainage from the wound but none since then denies any dyspnea denies any diarrhea from the recent antibiotics eating well drinking daughter at bedside during the visit Review of Systems 2 Review of Systems: gen - no fevers or chills cv - no orthopnea pul - no OLIVEIRA GI - no abd pain or N/V Physical Exam 2 Physical Exam: gen - very pleasant, NAD, nontoxic; obese neck - no JVD mouth - MMM, no thrush heart - RRR, s1 s2, 1/6 VANCE LSB lungs - CTA b/l abd - soft NT ND BS+ vascular - feet - 2+ pulses b/l skin - mildly warm erythema on left orr extending from just inferior to her incision/wound and down to just above the L ankle; there are 2 sets of demarkation lines and the erythema does NOT extend across the most recently placed line (04/18/25); in some areas, particularly the medial orr, there is a modest amount of recession of the erythema from that demarkation line. vertical linear wound well approximated with multiple steri-strips. nontender to palpation any location on the left orr. there is no open ulcer/wound of the left orr; no drainage. See 3 photos psych - a/o x 3 Results & Data Results & Data Vital Signs (Past 12 Hours) Vital Signs Temp Pulse Resp BP Pulse Ox O2 Del Method 04/19/25 09:15 Room Air 04/19/25 07:00 36.8 C 82 16 189/90 H 93 Room Air Laboratory Results Laboratory Results - last 48 hr 04/18/25 04/19/25 18:06 08:43 WBC 10.07 6.15 RBC 3.79 L 3.29 L Hgb 11.3 L 9.9 L Hct 34.3 L 30.3 L MCV 90.5 92.1 MCH 29.8 30.1 MCHC 32.9 32.7 RDW Std Deviation 41.7 43.0 RDW Coeff of Gaby 12.7 12.7 Plt Count 216 175 MPV 10.7 11.2 Immature Gran % (Auto) 0.4 0.5 Neut % (Auto) 73.8 67.2 Lymph % (Auto) 14.3 20.8 [place] % (Auto) 10.3 9.4 Eos % (Auto) 0.8 1.6 Baso % (Auto) 0.4 0.5 Neut # (Auto) 7.43 H 4.13 Lymph # (Auto) 1.44 1.28 [place] # (Auto) 1.04 H 0.58 Eos # (Auto) 0.08 0.10 Baso # (Auto) 0.04 0.03 Immature Gran # (Auto) 0.04 0.03 Sodium 142 142 Potassium 3.7 3.8 Chloride 108 H 108 H Carbon Dioxide 24 23 Anion Gap 10 11 BUN 37 H 37 H Creatinine 1.98 H 1.76 H Est Cr Clr Drug Dosing 33.7 37.6 eGFR 26.54 30.56 BUN/Creatinine Ratio 18.7 21.0 H Glucose 125 H 161 H Estimat Average Glucose 100 Hemoglobin A1c 5.1 Calcium 9.3 8.8 Total Bilirubin 0.5 AST 15 ALT 12 Alkaline Phosphatase 88 Total Protein 7.2 Albumin 4.2 Globulin 3.0 Albumin/Globulin Ratio 1.4 Diagnostic Findings Left leg below the knee: Microbiology 04/18/25 20:55 Blood Aerobic Blood Culture - Preliminary No growth in Aerobic bottle after 24 hours. 04/18/25 20:55 Blood Anaerobic Blood Culture - Preliminary No growth in Anaerobic bottle after 24 hours. 04/18/25 20:55 Blood Aerobic Blood Culture - Preliminary No growth in Aerobic bottle after 24 hours. 04/18/25 20:55 Blood Anaerobic Blood Culture - Preliminary No growth in Anaerobic bottle after 24 hours. PG Care Time/CCT Total # of Minutes Spent Total Time Spent with Patient: Total time spent is greater than 50% in coordination of care (as documented) at patient's floor/unit and/or counseling patient: Coding Level of Care Code 91125 SUB INP/OBS CARE 50MIN Diagnoses Cellulitis of left leg L03.116 Hematoma of left lower leg S80.12XA LUISA (acute kidney injury) N17.9 ZACHARY on CPAP G47.33 Chronic venous stasis dermatitis of both lower extremities I87.2 Stage 3b chronic kidney disease N18.32 Chronic kidney disease stage 3 subtype: stage 3b (GFR 30-44) (HFpEF) heart failure with preserved ejection fraction I50.30 Dyslipidemia E78.5 Solitary kidney, acquired Z90.5 Morbid obesity with BMI of 45.0-49.9, adult E66.01; Z68.42 (6) CKD (chronic kidney disease), stage III Chronic kidney disease stage 3 subtype: stage 3b (GFR 30-44) Qualified Code(s): N18.32 - Chronic kidney disease, stage 3b
[2025-04-19] MEDS: SIMVASTATIN 40 MG TAB PO SCH (20:45)
[2025-04-19 22:56] VITALS: O2SAT 94
[2025-04-20 08:31] VITALS: PULSE 76; RESP 16; TEMP 98.4
[2025-04-20 10:07] LABS: Anion Gap 11.0 (3-11); Blood Urea Nitrogen 32.0 mg/dl (6-23); Calcium 8.6 mg/dl (8.6-10.3); Carbon Dioxide 23.0 mmol/L (21-32); Chloride 106.0 mmol/L (98-107); Creatinine Clr Calc Pharmacy 44.1 ml/min; Glucose 178.0 mg/dl (70-99(Fasting)); Potassium 3.6 mmol/L (3.5-5.1); Sodium 140.0 mmol/L (136-145)
[2025-04-20 10:32] LABS: Folate (Folic Acid),Ser orPlas > 22.30 ng/ml (>5.38)
[2025-04-20 10:33] LABS: Vitamin B12 790 pg/ml (180-914)
--- NOTE | 2025-04-20 12:22 | CT Scan Report ---
Technique: Axial computed tomography images were obtained of the left lower leg without intravenous contrast. Sagittal and coronal reconstructions were obtained Comparison is made to the prior CT dated 03/30/2025 Findings: No fracture is identified. No subluxation or dislocation is seen. There are no significant arthritic changes. No focal osseous lesion is evident. There is a small accessory navicular bone There has been resolution of the previously seen hematoma in the mid left calf. There is worsened diffuse subcutaneous edema. No clear abscess is seen The visualized musculature appears unremarkable. No foreign body is evident Impression: 1. Resolution of the previously seen soft tissue hematoma 2. Worsened subcutaneous edema that may be due to cellulitis 3. No definite abscess or osteomyelitis Electronically signed by Fredo Meyers 04-20-2025 12:21 PM
--- NOTE | 2025-04-20 13:20 | Discharge Summary ---
Discharge Summary Date of Service April 20, 2025 Principal Dx & Hospital Course #1 = Principal Diagnosis (1) Cellulitis of left leg: (2) Hematoma of left lower leg: (3) LUISA (acute kidney injury): (4) ZACHARY on CPAP: (5) Chronic venous stasis dermatitis of both lower extremities: (6) CKD (chronic kidney disease), stage III: (7) (HFpEF) heart failure with preserved ejection fraction: (8) Dyslipidemia: (9) Solitary kidney, acquired: (10) Morbid obesity with BMI of 45.0-49.9, adult: Plan 69yo female with ZACHARY on CPAP, OA, chronic venous stasis, GERD, HTN, Hyperlipidemia, CKD stage 3, solitary kidney, MDD, and morbid obesity who was admitted for cellulitis of LLE. #Cellulitis LLE, with recent admission 03/30-04/04 for I & D of infected LLE intramuscular hematoma - -cultures from the early Mar admit grew staph epi - sens to Linezolid -day #2 of such -would cont IV Linezolid with plans to send home on such at discharge for 1 additional week -the cellulitis on exam today is stable and blood cx's remain negative -if there are new pathogens other than staph epi the Linezolid should be quite adequate (will cover MSSA, MRSA, enterococcus, etc) -will need to check charles of Linezolid prior to d/c home; will send Rx to pharmacy and f/u with [facility] tomorrow -hold wellbutrin while on Linezolid -with respect to recent hematoma - no evidence of reaccumulation on examination #LUISA on CKD stage 3a - -h/o acquired solitary kidney -Baseline creatinine 1.2-1.5; Cr at time of admission was 1.98 -Creatinine mildly improved today -finish current bag of IV fluids then saline lock -hold lasix -hold JOSHUA -repeat BMP am #hyperglycemia - -glucose this AM was ~160 -checked a1c - 5.1% -a1c may not be 100% accurate given her anemia -however, other glucose levels during prior hospital stay were acceptable -will recommend outpatient f/u for this #chronic HFpEF - -euvolemic on exam today -echo from 08/2023 showed EF of 55-60% -holding lasix in the midst of LUISA #ZACHARY - -cont home CPAP #HTN - -Continue home Hydralazine and Coreg -hold Lisinopril and lasix until creatinine improves #morbid obesity - -BMI 45.8 #chronic venous insufficiency - -would benefit from chronic compression -discussed use of custom-fit compression stockings #anemia - -check B12/folate in am -had Fe studies in September 2024 that were wnl -- defer on rechecking them VTE ppx: Heparin 5000 BID family updated at bedside hopefully can d/c home tomorrow AM if cellulitis is stable/improved Admission HPI Per Admitting Provider Patient is a 69 y/o F w/ PMHx of ZACHARY on CPAP, OA, chronic venous stasis, GERD, HTN, HLD, CKD-3, solitary kidney, MDD, and IBS who comes to the ED per recommendation of her surgeon due to noted worsening of her LLE cellulitis. Patient was recently admitted from 03/30-04/04 after she sustained a fall that resulted in an intramuscular hematoma that got infected and cellulitis, and although she states this feels similar to how she felt prior to this admission, it is not as severe. At the time of previous admission, she was treated with IV Cefepime and had I&D done on 04/01 and culture of what was drained showed Staph. Epidermidis. She was discharged with Cefpodoxime and Doxycycline due to concern of biofilm but at the time of admission sensitivities were still pending. She was taking abx as was prescribed but did not note much difference in her cellulitis and notes that although it was not more painful, the redness did spread. She was seen by her PCP on 04/14 and her abx was switched to Clindamycin, of which she has only taken once dose to date. She went to her Surgeon office to get the sutures removed after her I&D, and was told her cellu litis was worse and was advised to go to the ED. Denies having fevers, chills, N/V/D, changes in PO intake, weakness, or other systemic sxs. Labs/Imaging: CBC with relative leukocytosis of 10.07 with neutrophilic predominance, hemoglobin 11.3, platelets of 216. CMP without significant electrolyte abnormalities, creatinine above baseline at 1.98 (baseline around 1.21.4), and blood sugar of 125. LFTs unremarkable. Blood cultures collected and pending. Medical History: [Reviewed] Medications: [Reviewed] Surgical History: [Reviewed] Family history: [Reviewed] Allergies: [Reviewed] Social History: [Reviewed] Code Status: FULL Discharge Exam gen - very pleasant, NAD, nontoxic; obese neck - no JVD mouth - MMM, no thrush heart - RRR, s1 s2, 1/6 VANCE LSB lungs - CTA b/l abd - soft NT ND BS+ vascular - feet - 2+ pulses b/l skin - mildly warm erythema on left orr extending from just inferior to her incision/wound and down to just above the L ankle; there are 2 sets of demarkation lines and the erythema does NOT extend across the most recently placed line (04/18/25); in some areas, particularly the medial orr, there is a modest amount of recession of the erythema from that demarkation line. vertical linear wound well approximated with multiple steri-strips. nontender to palpation any location on the left orr. there is no open ulcer/wound of the left orr; no drainage. See 3 photos psych - a/o x 3 Discharge Plan Discharge Items Patient Disposition: Home - Self-Care Reason For Visit: cellulitis Discharge Diagnosis: 1. left leg cellulitis - improving 2. recent left leg hematoma - fully resolved 3. acute kidney injury (creatinine level higher than baseline) - improved/resolved, discharge creatinine level 1.5 4. chronic kidney disease / solitary kidney 5. elevated glucose levels - please follow-up with your family doctor for this 6. high blood pressure Condition on Discharge: Good Activity: Resume your previous activity Non-emergency contact: Primary Care Provider and Specialist Call non-emergency contact if: you have any medication questions, your symptoms worsen, your pain is not controlled, your pain is worsening, your pain is unusual for you, your pain is concerning for you, you have a fever, your wound has increased redness, your wound has increased drainage and your wound pain has increased Follow-up/Referrals: Solomon Rivera MD [Physician] - Christian Cohn, [Primary Care Provider] - (please see Dr Cohn or [facility] (Dr Rivera) prior to [place] to recheck the left leg ) Diet: Low Sodium (2gm) Fluids: 1800ml (7 cups) Addtl Attending Provider Instructions: Ms Hussein, You were hospitalized due to left leg cellulitis (skin infection). During your hospital stay earlier this month your cultures grew staph bacteria. Although you have had antibiotics off/on over the last several weeks the skin became inflamed/red/infected again. CT scan of your leg today did NOT show any reaccumulation of blood and does NOT show an abscess (pus pocket). You improved nicely with IV Linezolid antibiotic. Your blood cultures remained negative while here (no blood infection). In addition, your creatinine (kidney function level in the blood) was elevated at 1.9 upon admission. This improved to 1.5 on day of discharge. This is about your baseline kidney function level. Your creatinine improved with holding your furosemide water pill, holding your lisinopril, and giving you some gentle IV fluids. Recommendations - 1. Antibiotics - -start Linezolid 600mg twice daily x 7 days, first dose TONIGHT -see handout on Linezolid -STOP the previously prescribed clindamycin 2. HOLD your bupropion antidepressant. You must hold this medicine until your Linezolid antibiotic course has been completed. 3. You can stop your vitamin B12 supplement. Your vitamin B12 level is very robust at 790. 4. Please HOLD your lisinopril and your furosemide until the morning of 04/21/25. 5. Please HOLD your zinc supplement unless your family doctor asks you to resume it. 6. When resting in the bed or in the chair I would elevate your left leg on pillows. This helps with swelling/edema. 7. Ok to shower at this time. The steri-strips can get wet. Leave the steri- strips in place; don't peel them off unless they are barely attached; they will naturally fall off over time. 8. Please have your family doctor check a fasting glucose level in a few weeks to determine if there is any early pre-diabetes or diabetes. Follow-up - see Dr Rivera or Dr Cohn in 2-3 days (before [place]) to recheck your left leg Return to [facility] if - -you have fevers over 100 degrees -you have worsening redness, drainage, pain, etc from the left leg -you have worsening shortness of breath -you have severe diarrhea (3 or more liquid stools in 24 hours) -any other concerns It was our pleasure to care for you! Happy holidays, -Forrest Meraz, [facility] Pending Studies at Discharge: Yes Studies:: blood cultures, but thus far negative (no blood infection) Stand-Alone Forms: My [facility] Clutch, Smoking Cessation Medications and DC Order Prescriptions: New linezolid [Zyvox] 600 mg tablet 600 mg PO BID Qty: 14 0RF Continued potassium chloride 20 mEq tablet extended release 20 meq PO DAILY Qty: 90 3RF pantoprazole 20 mg tablet,delayed release (DR/EC) 20 mg PO BID Qty: 180 3RF hydralazine 50 mg tablet 50 mg PO TID Qty: 270 3RF simvastatin 40 mg tablet 40 mg PO QPM Qty: 30 3RF ascorbate calcium (vitamin C) 500 mg tablet 500 mg PO DAILY Patient Comments: off and on carvedilol 25 mg tablet 25 mg PO BID Qty: 180 3RF Zepbound 2.5 mg/0.5 mL pen injector 2.5 mg subcut Q7D Qty: 2 0RF iron 18 mg Tablet 28 mg PO DAILY Probiotic 3 billion cell Capsule 3,000 mmu cells PO DAILY calcium carbonate-vitamin D3 600 mg-5 mcg (200 unit) tablet 1 tab PO Q2D Glucosamine Chondroitin 550-30-1 mg Capsule 1 cap PO DAILY baclofen 10 mg tablet 10 mg PO UD PRN (Reason: muscle spasm) Patient Comments: have it, don't really take it albuterol sulfate 90 mcg/actuation HFA aerosol inhaler 2 inh inhalation UD PRN (Reason: hx pneumonia ) fluticasone propionate 50 mcg/actuation spray,suspension 2 spray intranasal UD PRN (Reason: allergies) Cranberry Plus Vitamin C 140-100 mg Capsule 1 cap PO DAILY Patient Comments: 4200 mg ashwagandha extract 500 mg Capsule 2,100 mg PO DAILY Patient Comments: organic ashwagandha Cbd Gummy 1 dose PO QAM Patient Comments: 25 mg cbd and 1 mg thc Metamucil Fiber Gummy 1 dose PO DAILY Patient Comments: 5 grams Turmeric Curcumin Complex 1 tab PO DAILY biotin 2,500 mcg Tablet,Chewable 5,000 mcg PO DAILY Changed acetaminophen [Tylenol Extra Strength] 500 mg Tablet 500 - 1,000 mg PO Q6H PRN (Reason: Pain) Qty: 0 0RF Patient Comments: take anywhere from 3-6 tablets per day Rx Instructions: maximum 3000mg in 24 hours Held bupropion HCl 150 mg tablet extended release 24 hr 150 mg PO HS Qty: 30 3RF Hold Instructions: hold at this time; may use only when the Linezolid antibiotic course has been completed. triamcinolone acetonide 0.1 % cream 1 applic topical BID PRN (Reason: skin irritation) Qty: 80 0RF Hold Instructions: hold at this time; do not apply to the left leg Patient Comments: legs Rx Instructions: Apply to the lower legs twice daily for up to 2 weeks as needed for flaring. lisinopril 20 mg tablet 20 mg PO BID Qty: 180 3RF Hold Instructions: Resume on 04/21/25. furosemide 40 mg tablet 60 mg PO DAILY Qty: 150 3RF Hold Instructions: Resume on 04/21/25. Rx Instructions: MAY TAKE ADDITIONAL 40 mg TABLET daily as needed for wt gain, edema, shortness of breath zinc 50 mg Tablet 50 mg PO Q2D Hold Instructions: please hold unless your family doctor recommends resuming it Discontinued clindamycin HCl 300 mg capsule 300 mg PO Q6H 5 Days Qty: 20 0RF mupirocin 2 % ointment 1 applic topical UD Patient Comments: I don't know cyanocobalamin (vitamin B-12) [Vitamin B-12] 1,000 mcg Tablet 25 mcg PO DAILY Patient Comments: have 1000 mcg tablets cut into 4 , take 25 mcg per day Discharge Orders: Discharge Order (Routine); Ordered 04/20/25 Ordered By: Forrest Price/Other Patient Handouts: Linezolid Oral Tablet Admission Data Admit Date/Time: 04/18/25 21:51 Attending Provider: Forrest Meraz Admit Provider: Marian Sethi Primary Care Provider: Christian Cohn Other Providers: Keeley Khan Hospital Stay Data Consultations 04/18/25 21:07 ED Decision to Admit Stat Diagnostic Imagining Performed 04/20/25 11:01 CT tib/fib LT wo con Urgent Pending Results Patient Have Any Pending Studies at Discharge: Yes Discharge Instructions Given to Patient (Per Discharging Provider) Ms Hussein, Fermín were hospitalized due to left leg cellulitis (skin infection). During your hospital stay earlier this month your cultures grew staph bacteria. Although you have had antibiotics off/on over the last several weeks the skin became inflamed/red/infected again. CT scan of your leg today did NOT show any reaccumulation of blood and does NOT show an abscess (pus pocket). You improved nicely with IV Linezolid antibiotic. Your blood cultures remained negative while here (no blood infection). In addition, your creatinine (kidney function level in the blood) was elevated at 1.9 upon admission. This improved to 1.5 on day of discharge. This is about your baseline kidney function level. Your creatinine improved with holding your furosemide water pill, holding your lisinopril, and giving you some gentle IV fluids. Recommendations - 1. Antibiotics - -start Linezolid 600mg twice daily x 7 days, first dose TONIGHT -see handout on Linezolid -STOP the previously prescribed clindamycin 2. HOLD your bupropion antidepressant. You must hold this medicine until your Linezolid antibiotic course has been completed. 3. You can stop your vitamin B12 supplement. Your vitamin B12 level is very robust at 790. 4. Please HOLD your lisinopril and your furosemide until the morning of 04/21/25. 5. Please HOLD your zinc supplement unless your family doctor asks you to resume it. 6. When resting in the bed or in the chair I would elevate your left leg on pillows. This helps with swelling/edema. 7. Ok to shower at this time. The steri-strips can get wet. Leave the steri- strips in place; don't peel them off unless they are barely attached; they will naturally fall off over time. 8. Please have your family doctor check a fasting glucose level in a few weeks to determine if there is any early pre-diabetes or diabetes. Follow-up - see Dr Rivera or Dr Cohn in 2-3 days (before [place]) to recheck your left leg Return to [facility] if - -you have fevers over 100 degrees -you have worsening redness, drainage, pain, etc from the left leg -you have worsening shortness of breath -you have severe diarrhea (3 or more liquid stools in 24 hours) -any other concerns It was our pleasure to care for you! Happy holidays, -Forrest Meraz, [facility] Coding Diagnoses Cellulitis of left leg L03.116 Hematoma of left lower leg S80.12XA LUISA (acute kidney injury) N17.9 ZACHARY on CPAP G47.33 Chronic venous stasis dermatitis of both lower extremities I87.2 Stage 3b chronic kidney disease N18.32 Chronic kidney disease stage 3 subtype: stage 3b (GFR 30-44) (HFpEF) heart failure with preserved ejection fraction I50.30 Dyslipidemia E78.5 Solitary kidney, acquired Z90.5 Morbid obesity with BMI of 45.0-49.9, adult E66.01; Z68.42
[2025-04-20 13:28] VITALS: BP 180/78
== END 2025-04-20 14:12 | disposition home or self-care (01) ==
LOC: 3W 17:37 → ED 17:37 → SUATTDRO 21:51 → 3W 22:42